=== PATIENT | male | born 2000 | race American Indian/Alaskan Native ===

== ENCOUNTER 2020-12-02 18:50 | Inpatient (IN) | payer SELFPAY ==
[2020-12-02] MEDS ORDERED: SODIUM CHLORIDE 0.9% 1000 ML 1,000 ML ONE ×2 (19:15→22:24)
--- NOTE | 2020-12-02 19:30 | Emergency Department Report ---
HPI - General Chief Complaint: Altered Mental Status Time Seen by Provider: 12/02/20 19:07 - HPI HPI: This is a 20-year-old male who presents to the emergency department through triage, brought in by family, for what appears to be an evaluation of altered mental status. Initially family said that he was having nausea with vomiting. However the patient is mostly unresponsive with his initial triage. It appears that Cameroonian is his redding language. Using the translation phone and a certified buck swamper, the patient says that he "feels fine but they thought something was wrong with me." He denies any headache, chest pain. He denies using any drugs or alcohol. However, at different points during his examination the patient's eyes will roll back into his head and he will start grunting and become less responsive. ED Review of Systems ROS: Stated complaint: VOMITTING Other details as noted in HPI Comment: Unobtainable due to pts medical conditions Physical Exam - Physical Exam Physical Exam: GENERAL: The patient is ill-appearing. HENT: Normocephalic. Atraumatic. Patient has moist mucous membranes. EYES: Patient's pupils are rolled back into his head. When they return to facing forward he does appear to have intact extraocular muscles and his pupils equal reactive to light bilaterally. NECK: Supple. Trachea is midline. CHEST/LUNGS: Clear to auscultation. There is no respiratory distress noted. HEART/CARDIOVASCULAR: Regular. There is moderate to severe tachycardia. There is no murmur. ABDOMEN: Abdomen is soft, nontender. Patient has normal bowel sounds. There is no abdominal distention. SKIN: Skin is warm and dry. NEURO: The patient is awake, alert, but confused. Cranial nerves II through XII grossly intact. No facial asymmetry. MUSCULOSKELETAL: There is no tenderness or deformity. There is no limitation range of motion. ED Medical Decision Making - Lab Data Result diagrams: 12/02/20 19:23 12/02/20 19:23 - EKG Data -: EKG Interpreted by Me EKG shows normal: sinus rhythm, axis, intervals, QRS complexes, ST-T waves Rate: tachycardia (138 bpm) - EKG Data When compared to previous EKG there are: previous EKG unavailable Interpretation: other (Sinus rhythm at 138 bpm, normal axis, normal intervals. No ST elevation [place]) - Radiology Data Radiology results: report reviewed, image reviewed interpreted by me: Chest x-ray does not show any acute process. There are no pleural effusions, obvious pneumonia and there is no pneumothorax. No widened mediastinum. CT head/brain wo con INDICATION / CLINICAL INFORMATION: 20 years Male; Altered mental status. TECHNIQUE: Routine CT head without contrast. All CT scans at this location are performed using CT dose reduction for ALARA by means of automated exposure control. COMPARISON: None. FINDINGS: BRAIN / INTRACRANIAL CONTENTS: No acute hemorrhage, mass effect, midline shift, hydrocephalus, or acute, large territorial infarct. No signs of significant atrophy or chronic infarct. No significant white matter abnormality seen. CRANIOCERVICAL JUNCTION: No significant abnormality. ORBITS: No significant abnormality of visualized orbits. SINUSES / MASTOIDS: Visualized paranasal sinuses and mastoid air cells are essentially clear. ADDITIONAL FINDINGS: None. IMPRESSION: 1. No focal mass, hemorrhage, hydrocephalus, or acute, large territorial infarct. - Medical Decision Making This patient presents to the emergency department with altered mental status. The patient has tachycardia with a heart rate of about 150. He is mostly nonverbal. Cameroonian appears to be his primary language but even with the translation line the patient only says no or yes. Multiple different times the patient can seen having his eyes rolled into the back of his head. When it normalizes he does appear to have equal pupils that are reactive to light and intact extraocular motion. Otherwise he does not appear to have any cranial nerve deficits. He is seen moving all of his extremities. CT of the head without contrast did not show any hemorrhage, large vessel occlusion, or any other acute process. EKG shows sinus tachycardia at about 135 bpm, but no morphology consistent with ST elevation myocardial infarction or any dysrhythmia. Chest x-ray does not show any pneumonia, pleural effusions, pneumothorax, widened mediastinum, or any other acute process. Patient's labs have been mostly unremarkable including CBC, CMP, normal thyroid function, normal ammonia, negative blood alcohol level and UDS. He has been given 2 L of IV fluid resuscitation and was given a dose of Ativan. There is some mild improvement in the tachycardia. Patient will be admitted to the hospital for further evaluation of his altered mental status and/or encephalopathy, and has been accepted for admission by the hospitalist, Dr. Cox. Critical Care Time: No Critical care attestation.: If time is entered above; I have spent that time in minutes in the direct care of this critically ill patient, excluding procedure time. ED Disposition Clinical Impression: Encephalopathy acute, Tachycardia Altered mental state Qualifiers: Altered mental status type: unspecified Qualified Code(s): R41.82 - Altered mental status, unspecified Disposition: 09 ADMITTED INPATIENT Is pt being admited?: Yes Condition: Stable Time of Disposition: 22:22
[2020-12-02 19:35] LABS: Basophils # (Auto) 0.1 K/mm3 (0.0-0.1); Basophils % (Auto) 0.4 % (0.0-1.8); Eosinophils % (Auto) 0.1 % (0.0-4.3); Hematocrit 44.9 % (35.5-45.6); Hemoglobin 15.2 gm/dl (11.8-15.2); Lymphocytes # (Auto) 1.3 K/mm3 (1.2-5.4); Lymphocytes % (Auto) 9.5 % (13.4-35.0); Mean Corpuscular HGB Conc 34 % (32-34); Mean Corpuscular Volume 86 fl (84-94); Monocytes # (Auto) 0.5 K/mm3 (0.0-0.8); Monocytes % (Auto) 3.8 % (0.0-7.3); Platelet Count 242 K/mm3 (140-440); Red Blood Count 5.24 M/mm3 (3.65-5.03); Red Cell Distribution Width 13.4 % (13.2-15.2)
--- NOTE | 2020-12-02 19:46 | XRay Report ---
CHEST 1 VIEW 12/02/2020 6:39 PM INDICATION / CLINICAL INFORMATION: Altered mental status. COMPARISON: None available. FINDINGS: SUPPORT DEVICES: None. HEART / MEDIASTINUM: No significant abnormality. LUNGS / PLEURA: No significant pulmonary or pleural abnormality. No pneumothorax. ADDITIONAL FINDINGS: No significant additional findings. IMPRESSION: 1. No acute findings. Signer Name: Cristóbal Montalvo MD Signed: 12/02/2020 7:42 PM Workstation Name: [id number]
[2020-12-02 20:00] LABS: Alanine Aminotransferase 26 units/L (7-56); Albumin 4.6 g/dL (3.9-5); BUN/Creatinine Ratio 10; Blood Urea Nitrogen 10 mg/dL (9-20); Calcium 9.7 mg/dL (8.4-10.2); Hemolysis Index 6
--- NOTE | 2020-12-02 20:15 | Cat Scan Report ---
CT head/brain wo con INDICATION / CLINICAL INFORMATION: 20 years Male; Altered mental status. TECHNIQUE: Routine CT head without contrast. All CT scans at this location are performed using CT dos e reduction for ALARA by means of automated exposure control. COMPARISON: None. FINDINGS: BRAIN / INTRACRANIAL CONTENTS: No acute hemorrhage, mass effect, midline shift, hydrocephalus, or acu te, large territorial infarct. No signs of significant atrophy or chronic infarct. No significant whi te matter abnormality seen. CRANIOCERVICAL JUNCTION: No significant abnormality. ORBITS: No significant abnormality of visualized orbits. SINUSES / MASTOIDS: Visualized paranasal sinuses and mastoid air cells are essentially clear. ADDITIONAL FINDINGS: None. IMPRESSION: 1. No focal mass, hemorrhage, hydrocephalus, or acute, large territorial infarct. Signer Name: Ted Olson MD, III Signed: 12/02/2020 8:11 PM Workstation Name: [id number]USMelanie
[2020-12-02 21:43] LABS: Bacteria,Urine 1+ /HPF (Negative); Bilirubin,Urine NEG (Negative); Blood,Urine NEG (Negative); Color,Urine Yellow (Yellow); Urobilinogen,Urine < 2.0 mg/dL (<2.0)
[2020-12-02 21:52] LABS: Benzodiazepines Screen,Urine Negative; Cannabinoid Screen,Urine Negative; Methadone Screen,Urine Negative; Opiate Screen,Urine Negative
[2020-12-02] MEDS ORDERED: LORazepam 2 MG/ML VIAL IV ONE (21:58)
[2020-12-02 22:04] LABS: Amphetamine Screen,Urine Negative; Cocaine Screen,Urine Negative
[2020-12-02] MEDS ORDERED: NALOXONE 0.4 MG/1 ML INJ IV PRN (23:17)
[2020-12-02] MEDS ORDERED: METOCLOPRAMIDE 10 MG/2 ML INJ IV PRN (23:17)
[2020-12-02] MEDS ORDERED: ALUM-MAG HYDROXIDE-SIMETHICONE 200-200-20MG/5ML ORAL LIQD 30 ML PO PRN (23:17)
[2020-12-02] MEDS ORDERED: ACETAMINOPHEN 325 MG TAB PO PRN (23:17)
[2020-12-02] MEDS ORDERED: SENNOSIDES 8.6 MG TAB PO PRN (23:17)
[2020-12-02] MEDS ORDERED: MAGNESIUM HYDROXIDE (MOM) ORAL LIQD UDC PO PRN (23:17)
[2020-12-02] MEDS ORDERED: ONDANSETRON 4 MG/2 ML INJ IV PRN (23:17)
[2020-12-02] MEDS ORDERED: oxyCODONE /ACETAMINOPHEN 5-325MG TAB PO PRN (23:17)
[2020-12-02] MEDS ORDERED: traMADol 50 MG TAB PO PRN (23:21)
[2020-12-02] MEDS ORDERED: traZODone 50 MG TAB PO PRN (23:21)
[2020-12-02] MEDS ORDERED: hydrALAZINE 20 MG/1 ML INJ IV PRN (23:21)
--- NOTE | 2020-12-02 23:30 | History and Physical Report ---
History of Present Illness Date of examination: 12/02/20 Date of admission: 12/02/20 22:22 Chief complaint: 12/02/20 History of present illness: This is a 20-year-old male seen in ED at baseline. Patient presents to the emergency department brought in by family with altered mental status. Per ED notes, family said that he was having nausea and vomiting. However the patient is mostly unresponsive with his initial triage. It appears that [place] Zealander is his k[place]isp[place] language. Using the translation phone and a certified well treatment offsider, the patient says that he "feels fine but they thought something was wrong with me." At the time of assessment patient is awake and oriented x1-2. Patient denies alcohol, tobacco use and illicit drug use. I reviewed radiology report CT of the head and chest x-ray showed no acute finding. MRI of the brain ordered and psych consulted for mental status evaluation. Past History Past Medical History: No medical history Past Surgical History: No surgical history Social history: no significant social history Family history: no significant family history (Patient came in with altered mental status, unable to get information from patient) Medications and Allergies Allergies Allergy/AdvReac Type Severity Reaction Status Date / Time Unable to Assess Allergy Verified 12/02/20 19:23 Active Meds: Active Medications Acetaminophen (Acetaminophen 325 Mg Tab) 650 mg PO Q4H PRN PRN Reason: Pain MILD(1-3)/Fever >100.5/STALEY Al Hydrox/Mg Hydrox/Simethicone (Alum-Mag Hydroxide-Simethicone [id number]/5ml Oral Liqd 30 Ml) 30 ml PO Q4H PRN PRN Reason: Indigestion Enoxaparin Sodium (Enoxaparin 40 Mg/0.4 Ml Inj) 40 mg SUB-Q QDAY ABHAY Famotidine (Famotidine 20 Mg/2 Ml Inj) 20 mg IV BID ABHAY Hydralazine HCl (Hydralazine 20 Mg/1 Ml Inj) 5 mg IV Q4HR PRN PRN Reason: Hypertension Sodium Chloride (Nacl 0.9% 1000 Ml) 1,000 mls @ 125 mls/hr IV DIRECT ABHAY Magnesium Hydroxide (Magnesium Hydroxide (Mom) Oral Liqd Udc) 30 ml PO Q4H PRN PRN Reason: Constipation Metoclopramide HCl (Metoclopramide 10 Mg/2 Ml Inj) 10 mg IV Q6H PRN PRN Reason: Nausea And Vomiting Naloxone HCl (Naloxone 0.4 Mg/1 Ml Inj) 0.1 mg IV Q2MIN PRN PRN Reason: Res Rate </= 8 or 02 SAT < 92% Ondansetron HCl (Ondansetron 4 Mg/2 Ml Inj) 4 mg IV Q8H PRN PRN Reason: Nausea And Vomiting Oxycodone/Acetaminophen (Oxycodone /Acetaminophen 5-325mg Tab) 1 tab PO Q6H PRN PRN Reason: Pain, Moderate (4-6) Senna (Sennosides 8.6 Mg Tab) 8.6 mg PO Q12HR PRN PRN Reason: Constipation Sodium Chloride (Sodium Chloride 0.9% 10 Ml Flush Syringe) 10 ml IV BID ABHAY Sodium Chloride (Sodium Chloride 0.9% 10 Ml Flush Syringe) 10 ml IV PRN PRN PRN Reason: LINE FLUSH Tramadol HCl (Tramadol 50 Mg Tab) 50 mg PO Q6H PRN PRN Reason: Pain, Moderate (4-6) Trazodone HCl (Trazodone 50 Mg Tab) 50 mg PO QHS PRN PRN Reason: Insomnia Review of Systems Ears, nose, mouth and throat: no epistaxis, no bleeding gums Cardiovascular: rapid/irregular heart beat, no chest pain Respiratory: no congestion, no wheezing Gastrointestinal: no melena Integumentary: no rash, no pruritis Neurological: change in mentation, sensory deficit Psychiatric: anxiety, confusion Hematologic/Lymphatic: no easy bruising, no easy bleeding Exam - Constitutional Vitals: Temp Pulse Resp BP Pulse Ox 98.5 F 139 H 16 105/62 100 12/02/20 22:26 12/02/20 22:45 12/02/20 22:45 12/02/20 22:45 12/02/20 22:45 General appearance: Present: mild distress, well-nourished - EENT Eyes: Present: PERRL ENT: hearing intact, clear oral mucosa - Neck Neck: Present: supple, normal ROM - Respiratory Respiratory effort: normal Respiratory: bilateral: CTA - Cardiovascular Heart Sounds: Present: S1 & S2. Absent: rub, click - Extremities Extremities: pulses symmetrical, No edema Peripheral Pulses: within normal limits - Abdominal General gastrointestinal: Present: soft, non-tender, non-distended, normal bowel sounds Male genitourinary: Present: normal - Integumentary Integumentary: Present: clear, warm, dry - Musculoskeletal Musculoskeletal: gait normal, strength equal bilaterally - Psychiatric Psychiatric: other (Patient confused with altered mental status) - Neurologic Neurologic: CNII-XII intact, moves all extremities - Allied Health Allied health notes reviewed: nursing Results - Labs CBC & Chem 7: 12/02/20 19:23 12/02/20 19:23 Labs: Abnormal lab results 12/02/20 12/02/20 12/02/20 Range/Units 19:23 19:23 Unknown WBC 13.7 H (4.5-11.0) K/mm3 RBC 5.24 H (3.65-5.03) M/mm3 Lymph % (Auto) 9.5 L (13.4-35.0) % Seg Neutrophils % 86.2 H (40.0-70.0) % Seg Neutrophils # 11.8 H (1.8-7.7) K/mm3 Glucose 149 H (75-100) mg/dL Urine pH 8.0 H (5.0-7.0) Assessment and Plan - Patient Problems (1) Encephalopathy acute Current Visit: Yes Status: Acute Plan to address problem: Questionable cause CT of the head negative for acute process Chest x-rayno acute finding Consults psych for mental status evaluation and treatment recommendation (2) Tachycardia with heart rate 141-160 beats per minute Current Visit: Yes Plan to address problem: Patient came in with altered mental status and sinus tachycardia Chest x-ray is done no acute finding Will continue IV hydration (3) Leukocytosis Current Visit: Yes Status: Acute Plan to address problem: Unknown causelikely reactive/infection Patient has no evidence of sepsis Monitor WBCblood culture x2 (4) DVT prophylaxis Current Visit: Yes Status: Acute Plan to address problem: Subcutaneous level
[2020-12-03 05:28] LABS: Basophils # (Auto) 0.1 K/mm3 (0.0-0.1); Basophils % (Auto) 0.8 % (0.0-1.8); Eosinophils # (Auto) 0.1 K/mm3 (0.0-0.4); Eosinophils % (Auto) 1.4 % (0.0-4.3); Hematocrit 43.2 % (35.5-45.6); Hemoglobin 14.5 gm/dl (11.8-15.2); Lymphocytes # (Auto) 2.5 K/mm3 (1.2-5.4); Lymphocytes % (Auto) 23.4 % (13.4-35.0); Mean Corpuscular HGB Conc 34 % (32-34); Mean Corpuscular Volume 86 fl (84-94); Monocytes # (Auto) 0.7 K/mm3 (0.0-0.8); Monocytes % (Auto) 6.6 % (0.0-7.3); Platelet Count 228 K/mm3 (140-440); Red Blood Count 4.99 M/mm3 (3.65-5.03); Red Cell Distribution Width 13.6 % (13.2-15.2)
[2020-12-03 05:53] LABS: Alanine Aminotransferase 22 units/L (7-56); Albumin 4.1 g/dL (3.9-5); BUN/Creatinine Ratio 10; Blood Urea Nitrogen 8 mg/dL (9-20); Calcium 9.2 mg/dL (8.4-10.2); Hemolysis Index 11
--- NOTE | 2020-12-03 10:17 | Electrocardiograph Report ---
[facility] Test Date: 2020-12-02 Test Time: 18:57:05 Pat Name: LUZMA CHANCE Department: Room: [place] [address] Gender: M Financial Compliance Manager: IVAN : 2000 Requested By: GENA WATKINS Order Number: [id number] Reading MD: Aris Meneses Measurements Intervals [place] Rate: 138 P: 69 MT: 122 QRS: 93 QRSD: 88 T: 14 QT: 298 QTc: 451 Interpretive Statements Sinus tachycardia No previous ECG available for comparison Electronically Signed On 12-03-2020 10:16:30 EDT by Aris Meneses
--- NOTE | 2020-12-03 11:02 | Magnetic Resonance Report ---
. MRI BRAIN WITHOUT CONTRAST INDICATION / CLINICAL INFORMATION: Altered mental status. TECHNIQUE: Multiplanar, multisequence MR images of the brain were obtained. COMPARISON: None available. FINDINGS: BRAIN / INTRACRANIAL CONTENTS: Ventricles and cortical sulci are normal in size and configuration. Th ere is no mass effect. No evidence of intracranial hemorrhage or extra-axial fluid collection is seen . No significant areas of abnormal brain parenchymal signal intensity are identified. There is no ind ication of remote cortical infarction. Diffusion weighted scans are negative. There is no indication of acute ischemic injury. The brainstem and cerebellum have an unremarkable appearance. MIDLINE STRUCTURES:No abnormalities are seen to involve the pituitary gland. Pineal region has an unr emarkable appearance. CRANIOCERVICAL JUNCTION: No abnormalities are identified at the craniocervical junction. VASCULAR FLOW-VOIDS: Normal flow-voids are present within the major intracranial vessels. ORBITS: The orbits have an unremarkable appearance. SINUSES / MASTOIDS: There is no indication of inflammatory disease in the paranasal sinuses or mastoi d air cells. IMPRESSION: 1. Normal MRI brain. Signer Name: Den Estrada MD Signed: 12/03/2020 10:57 AM Workstation Name: [id number]
[2020-12-03] MEDS: FAMOTIDINE 20 MG/2 ML INJ IV SCH (11:37)
[2020-12-03] MEDS: ENOXAPARIN 40 MG/0.4 ML INJ SUB-Q SCH (11:37)
--- NOTE | 2020-12-03 14:28 | Progress Note ---
Assessment and Plan Assessment and plan: (1) Encephalopathy acute Current Visit: Yes Status: Acute Plan to address problem: Questionable cause CT of the head negative for acute process Chest x-rayno acute finding Consults psych for mental status evaluation and treatment recommendation (2) Tachycardia with heart rate 141-160 beats per minute Current Visit: Yes Plan to address problem: Patient came in with altered mental status and sinus tachycardia Chest x-ray is done no acute finding Will continue IV hydration (3) Leukocytosis Current Visit: Yes Status: Acute Plan to address problem: Unknown causelikely reactive/infection Patient has no evidence of sepsis Monitor WBCblood culture x2 (4) DVT prophylaxis Current Visit: Yes Status: Acute Plan to address problem: Subcutaneous level 12/03/20 Patient with altered mental status, tachycardia. MRI Brain negative. Still has tachycardia, on iv fluids Neurology to evaluate History Interval history: Altered mental status Hospitalist Physical - Physical exam Narrative exam: Gen:Not in acute distress, lying in bed HEENT:Normocephalic, atraumatic Neck:supple, no JVD Lungs: clear to auscultation ,no wheeze Heart:S1 and S2 reg, no murmurs, rubs or gallop Abd:Soft, non tender, non distended, normal bowel sounds Ext:No edema. no clubbing, no cyanosis Neuro:Awake, alert, moves all ext - Constitutional Vitals: Temp Pulse Resp BP Pulse Ox 98.5 F 113 H 15 114/67 100 12/02/20 22:26 12/03/20 11:01 12/03/20 11:01 12/03/20 11:01 12/03/20 11:01 General appearance: Present: well-nourished Results - Labs CBC & Chem 7: 12/03/20 04:50 12/03/20 04:50 Labs: Laboratory Last Values WBC 10.5 K/mm3 (4.5-11.0) 12/03/20 04:50 RBC 4.99 M/mm3 (3.65-5.03) 12/03/20 04:50 Hgb 14.5 gm/dl (11.8-15.2) 12/03/20 04:50 Hct 43.2 % (35.5-45.6) 12/03/20 04:50 MCV 86 fl (84-94) 12/03/20 04:50 MCH 29 pg (28-32) 12/03/20 04:50 MCHC 34 % (32-34) 12/03/20 04:50 RDW 13.6 % (13.2-15.2) 12/03/20 04:50 Plt Count 228 K/mm3 (140-440) 12/03/20 04:50 Lymph % (Auto) 23.4 % (13.4-35.0) 12/03/20 04:50 [place] % (Auto) 6.6 % (0.0-7.3) 12/03/20 04:50 Eos % (Auto) 1.4 % (0.0-4.3) 12/03/20 04:50 Baso % (Auto) 0.8 % (0.0-1.8) 12/03/20 04:50 Lymph # (Auto) 2.5 K/mm3 (1.2-5.4) 12/03/20 04:50 [place] # (Auto) 0.7 K/mm3 (0.0-0.8) 12/03/20 04:50 Eos # (Auto) 0.1 K/mm3 (0.0-0.4) 12/03/20 04:50 Baso # (Auto) 0.1 K/mm3 (0.0-0.1) 12/03/20 04:50 Seg Neutrophils % 67.8 % (40.0-70.0) 12/03/20 04:50 Seg Neutrophils # 7.1 K/mm3 (1.8-7.7) 12/03/20 04:50 Sodium 143 mmol/L (137-145) 12/03/20 04:50 Potassium 3.8 mmol/L (3.6-5.0) 12/03/20 04:50 Chloride 107.6 mmol/L (98-107) H 12/03/20 04:50 Carbon Dioxide 26 mmol/L (22-30) 12/03/20 04:50 Anion Gap 13 mmol/L 12/03/20 04:50 BUN 8 mg/dL (9-20) L 12/03/20 04:50 Creatinine 0.8 mg/dL (0.8-1.3) 12/03/20 04:50 Estimated GFR > 60 ml/min 12/03/20 04:50 BUN/Creatinine Ratio 10 % 12/03/20 04:50 Glucose 108 mg/dL (75-100) H 12/03/20 04:50 Calcium 9.2 mg/dL (8.4-10.2) 12/03/20 04:50 Total Bilirubin 0.30 mg/dL (0.1-1.2) 12/03/20 04:50 AST 20 units/L (5-40) 12/03/20 04:50 ALT 22 units/L (7-56) 12/03/20 04:50 Alkaline Phosphatase 75 units/L (35-129) 12/03/20 04:50 Ammonia 39.0 umol/L (25-60) 12/02/20 19:23 Total Creatine Kinase 116 units/L (55-170) 12/02/20 19:23 Total Protein 6.7 g/dL (6.3-8.2) 12/03/20 04:50 Albumin 4.1 g/dL (3.9-5) 12/03/20 04:50 Albumin/Globulin Ratio 1.6 % 12/03/20 04:50 TSH 0.676 mlU/mL (0.270-4.200) 12/02/20 19:23 Urine Color Yellow (Yellow) 12/02/20 Unknown Urine Turbidity Cloudy (Clear) 12/02/20 Unknown Urine pH 8.0 (5.0-7.0) H 12/02/20 Unknown Ur Specific [place] 1.023 (1.003-1.030) 12/02/20 Unknown Urine Protein 100 mg/dl mg/dL (Negative) 12/02/20 Unknown Urine Glucose (UA) Neg mg/dL (Negative) 12/02/20 Unknown Urine Ketones Tr mg/dL (Negative) 12/02/20 Unknown Urine Blood Neg (Negative) 12/02/20 Unknown Urine Nitrite Neg (Negative) 12/02/20 Unknown Urine Bilirubin Neg (Negative) 12/02/20 Unknown Urine Urobilinogen < 2.0 mg/dL (<2.0) 12/02/20 Unknown Ur Leukocyte Esterase Neg (Negative) 12/02/20 Unknown Urine WBC (Auto) 2.0 /HPF (0.0-6.0) 12/02/20 Unknown Urine RBC (Auto) 1.0 /HPF (0.0-6.0) 12/02/20 Unknown Urine Bacteria (Auto) 1+ /HPF (Negative) 12/02/20 Unknown Urine Yeast (Budding) 2+ /HPF 12/02/20 Unknown Urine Opiates Screen Negative 12/02/20 Unknown Urine Methadone Screen Negative 12/02/20 Unknown Ur Barbiturates Screen Negative 12/02/20 Unknown Ur Phencyclidine Scrn Negative 12/02/20 Unknown Ur Amphetamines Screen Negative 12/02/20 Unknown U Benzodiazepines Scrn Negative 12/02/20 Unknown Urine Cocaine Screen Negative 12/02/20 Unknown U Marijuana (THC) Screen Negative 12/02/20 Unknown Drugs of Abuse Note Disclamer 12/02/20 Unknown Plasma/Serum Alcohol < 0.01 % (0-0.07) 12/02/20 19:23 Microbiology: Microbiology 12/03/20 05:15 Peripheral/Venous Blood Culture - Preliminary Culture in Progress 12/03/20 05:45 Peripheral/Venous Blood Culture - Preliminary Culture in Progress Active Medications - Current Medications Current Medications: Generic Name Dose Route Start Last Admin Trade Name Freq PRN Reason Stop Dose Admin Acetaminophen 650 mg 12/02/20 23:17 Acetaminophen 325 Mg Tab PO Q4H PRN Pain MILD(1-3)/Fever >100.5/STALEY Al Hydrox/Mg Hydrox/Simethicone 30 ml 12/02/20 23:17 Alum-Mag Hydroxide-Simethicone [phone]/5ml Oral Liqd 30 Ml PO Q4H PRN Indigestion Enoxaparin Sodium 40 mg 12/03/20 10:00 12/03/20 11:37 Enoxaparin 40 Mg/0.4 Ml Inj SUB-Q 40 mg QDAY ABHAY Administration Famotidine 20 mg 12/03/20 10:00 12/03/20 11:37 Famotidine 20 Mg/2 Ml Inj IV 20 mg BID ABHAY Administration Hydralazine HCl 5 mg 12/02/20 23:21 Hydralazine 20 Mg/1 Ml Inj IV Q4HR PRN Hypertension Sodium Chloride 1,000 mls @ 125 mls/hr 12/02/20 23:30 Nacl 0.9% 1000 Ml IV DIRECT ABHAY Magnesium Hydroxide 30 ml 12/02/20 23:17 Magnesium Hydroxide (Mom) Oral Liqd Udc PO Q4H PRN Constipation Metoclopramide HCl 10 mg 12/02/20 23:17 Metoclopramide 10 Mg/2 Ml Inj IV Q6H PRN Nausea And Vomiting Naloxone HCl 0.1 mg 12/02/20 23:17 Naloxone 0.4 Mg/1 Ml Inj IV Q2MIN PRN Res Rate </= 8 or 02 SAT < 92% Ondansetron HCl 4 mg 12/02/20 23:17 Ondansetron 4 Mg/2 Ml Inj IV Q8H PRN Nausea And Vomiting Oxycodone/Acetaminophen 1 tab 12/02/20 23:17 Oxycodone /Acetaminophen 5-325mg Tab PO Q6H PRN Pain, Moderate (4-6) Senna 8.6 mg 12/02/20 23:17 Sennosides 8.6 Mg Tab PO Q12HR PRN Constipation Sodium Chloride 10 ml 12/02/20 23:45 12/03/20 11:37 Sodium Chloride 0.9% 10 Ml Flush Syringe IV 10 ml BID ABHAY Administration Sodium Chloride 10 ml 12/02/20 23:17 Sodium Chloride 0.9% 10 Ml Flush Syringe IV PRN PRN LINE FLUSH Tramadol HCl 50 mg 12/02/20 23:21 Tramadol 50 Mg Tab PO Q6H PRN Pain, Moderate (4-6) Trazodone HCl 50 mg 12/02/20 23:21 Trazodone 50 Mg Tab PO QHS PRN Insomnia
--- NOTE | 2020-12-03 16:47 | Consultation ---
History of Present Illness Consult date: 12/03/20 Reason for Consult: Altered Mental Status Chief complaint: Altered Mental Status History of present illness: 20 yo male with acute encephalopathy. 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 Past History Past Medical History: No medical history Past Surgical History: No surgical history Social history: no significant social history Family history: no significant family history (Patient came in with altered mental status, unable to get information from patient) Medications and Allergies Allergies Allergy/AdvReac Type Severity Reaction Status Date / Time Unable to Assess Allergy Verified 12/02/20 19:23 Active Meds: Active Medications Acetaminophen (Acetaminophen 325 Mg Tab) 650 mg PO Q4H PRN PRN Reason: Pain MILD(1-3)/Fever >100.5/STALEY Al Hydrox/Mg Hydrox/Simethicone (Alum-Mag Hydroxide-Simethicone [phone]/5ml Oral Liqd 30 Ml) 30 ml PO Q4H PRN PRN Reason: Indigestion Enoxaparin Sodium (Enoxaparin 40 Mg/0.4 Ml Inj) 40 mg SUB-Q QDAY [facility] Last Admin: 12/03/20 11:37 Dose: 40 mg Documented by: Famotidine (Famotidine 20 Mg/2 Ml Inj) 20 mg IV BID [facility] Last Admin: 12/03/20 11:37 Dose: 20 mg Documented by: Hydralazine HCl (Hydralazine 20 Mg/1 Ml Inj) 5 mg IV Q4HR PRN PRN Reason: Hypertension Sodium Chloride (Nacl 0.9% 1000 Ml) 1,000 mls @ 125 mls/hr IV DIRECT [facility] Magnesium Hydroxide (Magnesium Hydroxide (Mom) Oral Liqd Udc) 30 ml PO Q4H PRN PRN Reason: Constipation Metoclopramide HCl (Metoclopramide 10 Mg/2 Ml Inj) 10 mg IV Q6H PRN PRN Reason: Nausea And Vomiting Naloxone HCl (Naloxone 0.4 Mg/1 Ml Inj) 0.1 mg IV Q2MIN PRN PRN Reason: Res Rate </= 8 or 02 SAT < 92% Ondansetron HCl (Ondansetron 4 Mg/2 Ml Inj) 4 mg IV Q8H PRN PRN Reason: Nausea And Vomiting Oxycodone/Acetaminophen (Oxycodone /Acetaminophen 5-325mg Tab) 1 tab PO Q6H PRN PRN Reason: Pain, Moderate (4-6) Senna (Sennosides 8.6 Mg Tab) 8.6 mg PO Q12HR PRN PRN Reason: Constipation Sodium Chloride (Sodium Chloride 0.9% 10 Ml Flush Syringe) 10 ml IV BID [facility] Last Admin: 12/03/20 11:37 Dose: 10 ml Documented by: Sodium Chloride (Sodium Chloride 0.9% 10 Ml Flush Syringe) 10 ml IV PRN PRN PRN Reason: LINE FLUSH Tramadol HCl (Tramadol 50 Mg Tab) 50 mg PO Q6H PRN PRN Reason: Pain, Moderate (4-6) Trazodone HCl (Trazodone 50 Mg Tab) 50 mg PO QHS PRN PRN Reason: Insomnia Physical Examination - Vital Signs Vital Signs: Vital Signs Pulse Resp Pulse Ox 120 H 15 100 12/02/20 19:46 12/02/20 19:46 12/02/20 19:46 - Physical Exam Narrative exam: Patient is not able to cooperate with exam due to language barrier. Results - Laboratory Findings CBC and BMP: 12/03/20 04:50 12/03/20 04:50 Abnormal Lab Findings: Abnormal Labs 12/02/20 12/02/20 12/02/20 19:23 19:23 Unknown WBC 13.7 H RBC 5.24 H Lymph % (Auto) 9.5 L Seg Neutrophils % 86.2 H Seg Neutrophils # 11.8 H Chloride BUN Glucose 149 H Urine pH 8.0 H 12/03/20 04:50 WBC RBC Lymph % (Auto) Seg Neutrophils % Seg Neutrophils # Chloride 107.6 H BUN 8 L Glucose 108 H Urine pH Assessment and Plan 20 yo male with noted acute encephalopathy. 1. Seizure - recommend EEG; MRI Brain w/ wo contrast. 2. Toxic / Metabolic Encephalopathy - workup per primary team. 3. ADEM - confirm no underlying covid-19; awaiting MRI Brain w/ wo contrast. 4. Encephalitis - consider CSF evaluation if MRI Brain and metaolic/toxic workup is unremarkable. Randy Tadeo MD Neurology
[2020-12-04] MEDS: FAMOTIDINE 20 MG/2 ML INJ IV SCH ×3 (01:52→21:20)
[2020-12-04 05:06] LABS: Hematocrit 45.5 % (35.5-45.6); Hemoglobin 15.5 gm/dl (11.8-15.2); Mean Corpuscular HGB Conc 34 % (32-34); Mean Corpuscular Volume 87 fl (84-94); Platelet Count 244 K/mm3 (140-440); Red Blood Count 5.21 M/mm3 (3.65-5.03); Red Cell Distribution Width 13.5 % (13.2-15.2)
[2020-12-04 05:14] LABS: BUN/Creatinine Ratio 12; Blood Urea Nitrogen 12 mg/dL (9-20); Calcium 9.4 mg/dL (8.4-10.2); Hemolysis Index 6
--- NOTE | 2020-12-04 08:59 | Event Note ---
Date: 12/04/20 Consulted ID for poss Encephalitis,as per Neuro. I discussed with Dr. Hernandez. She recommends Vancomycin, Rocephin, Acyclovir and obtain lumbar puncture for CSF analysis.
[2020-12-04] MEDS ORDERED: VANCOMYCIN PHARMACY TO DOSE IV SCH (09:00)
[2020-12-04] MEDS ORDERED: VANCOMYCIN 1,750 MG in SODIUM CHLORIDE 0.9% 500 ML 500 ML IV ONE (10:00)
--- NOTE | 2020-12-04 10:06 | Progress Note ---
Assessment and Plan Assessment and plan: (1) Encephalopathy acute Current Visit: Yes Status: Acute Plan to address problem: Questionable cause CT of the head negative for acute process Chest x-rayno acute finding Consults psych for mental status evaluation and treatment recommendation (2) Tachycardia with heart rate 141-160 beats per minute Current Visit: Yes Plan to address problem: Patient came in with altered mental status and sinus tachycardia Chest x-ray is done no acute finding Will continue IV hydration (3) Leukocytosis Current Visit: Yes Status: Acute Plan to address problem: Unknown causelikely reactive/infection Patient has no evidence of sepsis Monitor WBCblood culture x2 (4) DVT prophylaxis Current Visit: Yes Status: Acute Plan to address problem: Subcutaneous level 12/03/20 Patient with altered mental status, tachycardia. MRI Brain negative. Still has tachycardia, on iv fluids Neurology to evaluate 12/04/20 patient with altered mental status, tachycardia. MRI Brain without contrast is negative. He was evaluated by Neurologist and he noted poss seizures, poss encephalitis. I consulted GENE Mansfield for possible encephalitis and discussed case with her. She recommends starting Ceftriaxone, Vancomycin and Acyclovir and obtain Lumbar puncture for CSF analysis. History Interval history: Altered mental status Hospitalist Physical - Physical exam Narrative exam: Gen:Not in acute distress, lying in bed HEENT:Normocephalic, atraumatic Neck:supple, no JVD Lungs: clear to auscultation ,no wheeze Heart:S1 and S2 reg, no murmurs, rubs or gallop Abd:Soft, non tender, non distended, normal bowel sounds Ext:No edema. no clubbing, no cyanosis Neuro:Awake, alert, currently oriented in person,place, time, moves all ext - Constitutional Vitals: Temp Pulse Resp BP Pulse Ox 97.5 F L 112 H 17 113/71 98 12/04/20 04:15 12/04/20 04:15 12/04/20 04:15 12/04/20 04:15 12/04/20 04:15 General appearance: Present: well-nourished Results - Labs CBC & Chem 7: 12/04/20 03:31 12/04/20 03:31 Labs: Laboratory Last Values WBC 10.3 K/mm3 (4.5-11.0) 12/04/20 03:31 RBC 5.21 M/mm3 (3.65-5.03) H 12/04/20 03:31 Hgb 15.5 gm/dl (11.8-15.2) H 12/04/20 03:31 Hct 45.5 % (35.5-45.6) 12/04/20 03:31 MCV 87 fl (84-94) 12/04/20 03:31 MCH 30 pg (28-32) 12/04/20 03:31 MCHC 34 % (32-34) 12/04/20 03:31 RDW 13.5 % (13.2-15.2) 12/04/20 03:31 Plt Count 244 K/mm3 (140-440) 12/04/20 03:31 Lymph % (Auto) 23.4 % (13.4-35.0) 12/03/20 04:50 [place] % (Auto) 6.6 % (0.0-7.3) 12/03/20 04:50 Eos % (Auto) 1.4 % (0.0-4.3) 12/03/20 04:50 Baso % (Auto) 0.8 % (0.0-1.8) 12/03/20 04:50 Lymph # (Auto) 2.5 K/mm3 (1.2-5.4) 12/03/20 04:50 [place] # (Auto) 0.7 K/mm3 (0.0-0.8) 12/03/20 04:50 Eos # (Auto) 0.1 K/mm3 (0.0-0.4) 12/03/20 04:50 Baso # (Auto) 0.1 K/mm3 (0.0-0.1) 12/03/20 04:50 Seg Neutrophils % 67.8 % (40.0-70.0) 12/03/20 04:50 Seg Neutrophils # 7.1 K/mm3 (1.8-7.7) 12/03/20 04:50 Sodium 142 mmol/L (137-145) 12/04/20 03:31 Potassium 3.8 mmol/L (3.6-5.0) 12/04/20 03:31 Chloride 102.2 mmol/L (98-107) 12/04/20 03:31 Carbon Dioxide 26 mmol/L (22-30) 12/04/20 03:31 Anion Gap 18 mmol/L 12/04/20 03:31 BUN 12 mg/dL (9-20) 12/04/20 03:31 Creatinine 1.0 mg/dL (0.8-1.3) 12/04/20 03:31 Estimated GFR > 60 ml/min 12/04/20 03:31 BUN/Creatinine Ratio 12 % 12/04/20 03:31 Glucose 96 mg/dL (75-100) 12/04/20 03:31 Calcium 9.4 mg/dL (8.4-10.2) 12/04/20 03:31 Total Bilirubin 0.30 mg/dL (0.1-1.2) 12/03/20 04:50 AST 20 units/L (5-40) 12/03/20 04:50 ALT 22 units/L (7-56) 12/03/20 04:50 Alkaline Phosphatase 75 units/L (35-129) 12/03/20 04:50 Ammonia 39.0 umol/L (25-60) 12/02/20 19:23 Total Creatine Kinase 116 units/L (55-170) 12/02/20 19:23 Total Protein 6.7 g/dL (6.3-8.2) 12/03/20 04:50 Albumin 4.1 g/dL (3.9-5) 12/03/20 04:50 Albumin/Globulin Ratio 1.6 % 12/03/20 04:50 TSH 0.676 mlU/mL (0.270-4.200) 12/02/20 19:23 Urine Color Yellow (Yellow) 12/02/20 Unknown Urine Turbidity Cloudy (Clear) 12/02/20 Unknown Urine pH 8.0 (5.0-7.0) H 12/02/20 Unknown Ur Specific [place] 1.023 (1.003-1.030) 12/02/20 Unknown Urine Protein 100 mg/dl mg/dL (Negative) 12/02/20 Unknown Urine Glucose (UA) Neg mg/dL (Negative) 12/02/20 Unknown Urine Ketones Tr mg/dL (Negative) 12/02/20 Unknown Urine Blood Neg (Negative) 12/02/20 Unknown Urine Nitrite Neg (Negative) 12/02/20 Unknown Urine Bilirubin Neg (Negative) 12/02/20 Unknown Urine Urobilinogen < 2.0 mg/dL (<2.0) 12/02/20 Unknown Ur Leukocyte Esterase Neg (Negative) 12/02/20 Unknown Urine WBC (Auto) 2.0 /HPF (0.0-6.0) 12/02/20 Unknown Urine RBC (Auto) 1.0 /HPF (0.0-6.0) 12/02/20 Unknown Urine Bacteria (Auto) 1+ /HPF (Negative) 12/02/20 Unknown Urine Yeast (Budding) 2+ /HPF 12/02/20 Unknown Urine Opiates Screen Negative 12/02/20 Unknown Urine Methadone Screen Negative 12/02/20 Unknown Ur Barbiturates Screen Negative 12/02/20 Unknown Ur Phencyclidine Scrn Negative 12/02/20 Unknown Ur Amphetamines Screen Negative 12/02/20 Unknown U Benzodiazepines Scrn Negative 12/02/20 Unknown Urine Cocaine Screen Negative 12/02/20 Unknown U Marijuana (THC) Screen Negative 12/02/20 Unknown Drugs of Abuse Note Disclamer 12/02/20 Unknown Plasma/Serum Alcohol < 0.01 % (0-0.07) 12/02/20 19:23 Microbiology: Microbiology 12/03/20 05:15 Peripheral/Venous Blood Culture - Preliminary NO GROWTH AFTER 24 HOURS 12/03/20 05:45 Peripheral/Venous Blood Culture - Preliminary NO GROWTH AFTER 24 HOURS Active Medications - Current Medications Current Medications: Generic Name Dose Route Start Last Admin Trade Name Freq PRN Reason Stop Dose Admin Acetaminophen 650 mg 12/02/20 23:17 Acetaminophen 325 Mg Tab PO Q4H PRN Pain MILD(1-3)/Fever >100.5/STALEY Al Hydrox/Mg Hydrox/Simethicone 30 ml 12/02/20 23:17 Alum-Mag Hydroxide-Simethicone [phone]/5ml Oral Liqd 30 Ml PO Q4H PRN Indigestion Enoxaparin Sodium 40 mg 12/03/20 10:00 12/03/20 11:37 Enoxaparin 40 Mg/0.4 Ml Inj SUB-Q 40 mg QDAY [facility] Administration Famotidine 20 mg 12/03/20 10:00 12/04/20 01:52 Famotidine 20 Mg/2 Ml Inj IV Not Given BID [facility] Hydralazine HCl 5 mg 12/02/20 23:21 Hydralazine 20 Mg/1 Ml Inj IV Q4HR PRN Hypertension Sodium Chloride 1,000 mls @ 125 mls/hr 12/02/20 23:30 Nacl 0.9% 1000 Ml IV DIRECT [facility] Ceftriaxone Sodium 2 gm in 100 mls @ 200 mls/hr 12/04/20 10:00 Rocephin/Ns 2 Gm/100 Ml IV Q12HR [facility] Protocol Acyclovir 800 mg/ Sodium 116 mls @ 100 mls/hr 12/04/20 10:00 Chloride IV Q8H [facility] Protocol Vancomycin HCl 1,750 mg/ 535 mls @ 356.667 mls/hr 12/04/20 10:00 Sodium Chloride IV 12/04/20 11:29 ONCE ONE Magnesium Hydroxide 30 ml 12/02/20 23:17 Magnesium Hydroxide (Mom) Oral Liqd Udc PO Q4H PRN Constipation Metoclopramide HCl 10 mg 12/02/20 23:17 Metoclopramide 10 Mg/2 Ml Inj IV Q6H PRN Nausea And Vomiting Naloxone HCl 0.1 mg 12/02/20 23:17 Naloxone 0.4 Mg/1 Ml Inj IV Q2MIN PRN Res Rate </= 8 or 02 SAT < 92% Ondansetron HCl 4 mg 12/02/20 23:17 Ondansetron 4 Mg/2 Ml Inj IV Q8H PRN Nausea And Vomiting Oxycodone/Acetaminophen 1 tab 12/02/20 23:17 Oxycodone /Acetaminophen 5-325mg Tab PO Q6H PRN Pain, Moderate (4-6) Senna 8.6 mg 12/02/20 23:17 Sennosides 8.6 Mg Tab PO Q12HR PRN Constipation Sodium Chloride 10 ml 12/02/20 23:45 12/04/20 01:52 Sodium Chloride 0.9% 10 Ml Flush Syringe IV Not Given BID ABHAY Sodium Chloride 10 ml 12/02/20 23:17 Sodium Chloride 0.9% 10 Ml Flush Syringe IV PRN PRN LINE FLUSH Tramadol HCl 50 mg 12/02/20 23:21 Tramadol 50 Mg Tab PO Q6H PRN Pain, Moderate (4-6) Trazodone HCl 50 mg 12/02/20 23:21 12/03/20 23:02 Trazodone 50 Mg Tab PO 50 mg QHS PRN Administration Insomnia
[2020-12-04] MEDS: cefTRIAXone/NS 2 GM/100 ML 2 GM/100 ML BAG IV SCH ×2 (10:37→21:22)
[2020-12-04] MEDS: ENOXAPARIN 40 MG/0.4 ML INJ SUB-Q SCH ×2 (10:39→13:54)
[2020-12-04] MEDS: SODIUM CHLORIDE 0.9% 1000 ML 1,000 ML IV SCH ×2 (10:40→23:43)
--- NOTE | 2020-12-04 12:30 | Consultation ---
History of Present Illness - Reason for Consult Consult date: 12/04/20 Reason for consult: AMS - History of Present Psychiatric Illness Per ER Note: This is a 20-year-old male who presents to the emergency department through triage, brought in by family, for what appears to be an evaluation of altered mental status. Initially family said that he was having nausea with vomiting. However the patient is mostly unresponsive with his initial triage. It appears that [place]ian is his [place] and [place] tribes language. Using the translation phone and a certified hospital attendant, the patient says that he "feels fine but they thought something was wrong with me." He denies any headache, chest pain. He denies using any drugs or alcohol. However, at different points during his examination the patient's eyes will roll back into his head and he will start grunting and become less responsive. Lupillo Toth is a 20y/o male patient whom I evaluated today. The patient is [place]ian speaking. The language line was utilized. The patient is a/o x 3. He is calm and cooperative. The patient state he was brought to the hospital because he wasn't feeling well. He denies any past psychiatric history. He also denies being on any psychiatric medications. The patient denies SI/HI or ever feeling this way in the past. He denies hallucinations of any kind. The patient says "no, I came to the hospital because I was not feeling well." The patient denies any illicit drug use, alcohol or nicotine. When asking the patient was he feeling okay mentally, he says yes. He denied feeling depressed or anxious. PAST PSYCHIATRIC HISTORY: Diagnoses: Denies Suicide attempts or Self-harm behavior: Denies Prior psychiatric hospitalizations: Denies Substance Abuse history: Denies Previous psychiatric medications tried: Denies Outpatient treatment: Denies PAST MEDICAL HISTORY: None reported or document Family Psychiatric History: None reported or documented SOCIAL HISTORY Marital Status: Single Living Arrangements: with family Employment Status: unemployed Access to guns/weapons: Denies Education: high school History of Abuse: None reported Legal History: None reported REVIEW OF SYSTEMS Constitutional: Negative for weight loss ENT: Negative for stridor Respiratory: Negative for cough or hemoptysis All other systems reviewed and are negative MENTAL STATUS EXAMINATION General Appearance and Behavior: Age appropriate, good hygiene, wearing appropriate clothes, polite Cooperation: Cooperative Psychomotor Behavior: Psychomotor normal Mood: okay Affect and affective range: congruent with stated mood Thought Process: Goal directed Thought Content: None Speech: Normal volume, Regular rate and rhythm, Suicidal Ideation: Denies Homicidal Ideation: Denies Hallucinations: Denies Delusions: None elicited Impulse Control: Limited Insight and Judgment: Limited Memory: Limited Attention: Attentive Orientation: alert and oriented Assessment and Plan (1) Mental Health Evaluation Treatment Plan No meds at this time Sitter: per primary Medical: per primary Disposition: Do not recommend acute psychiatric inpatient treatment. Will sign off. Thanks Case staffed with Dr. Carias Medications and Allergies Allergies Allergy/AdvReac Type Severity Reaction Status Date / Time Unable to Assess Allergy Verified 12/02/20 19:23 Active Meds: Active Medications Acetaminophen (Acetaminophen 325 Mg Tab) 650 mg PO Q4H PRN PRN Reason: Pain MILD(1-3)/Fever >100.5/STALEY Al Hydrox/Mg Hydrox/Simethicone (Alum-Mag Hydroxide-Simethicone [phone]/5ml Oral Liqd 30 Ml) 30 ml PO Q4H PRN PRN Reason: Indigestion Enoxaparin Sodium (Enoxaparin 40 Mg/0.4 Ml Inj) 40 mg SUB-Q QDAY [facility] Last Admin: 12/04/20 10:39 Dose: Not Given Documented by: Famotidine (Famotidine 20 Mg/2 Ml Inj) 20 mg IV BID [facility] Last Admin: 12/04/20 10:37 Dose: 20 mg Documented by: Hydralazine HCl (Hydralazine 20 Mg/1 Ml Inj) 5 mg IV Q4HR PRN PRN Reason: Hypertension Sodium Chloride (Nacl 0.9% 1000 Ml) 1,000 mls @ 125 mls/hr IV DIRECT [facility] Last Admin: 12/04/20 10:40 Dose: 125 mls/hr Documented by: Ceftriaxone Sodium (Rocephin/Ns 2 Gm/100 Ml) 2 gm in 100 mls @ 200 mls/hr IV Q12HR [facility]; Protocol Last Admin: 12/04/20 10:37 Dose: 200 mls/hr Documented by: Acyclovir 800 mg/ Sodium (Chloride) 116 mls @ 100 mls/hr IV Q8H [facility]; Protocol Vancomycin HCl 1,250 mg/ (Sodium Chloride) 275 mls @ 183.333 mls/hr IV Q12H [facility] Magnesium Hydroxide (Magnesium Hydroxide (Mom) Oral Liqd Udc) 30 ml PO Q4H PRN PRN Reason: Constipation Metoclopramide HCl (Metoclopramide 10 Mg/2 Ml Inj) 10 mg IV Q6H PRN PRN Reason: Nausea And Vomiting Naloxone HCl (Naloxone 0.4 Mg/1 Ml Inj) 0.1 mg IV Q2MIN PRN PRN Reason: Res Rate </= 8 or 02 SAT < 92% Ondansetron HCl (Ondansetron 4 Mg/2 Ml Inj) 4 mg IV Q8H PRN PRN Reason: Nausea And Vomiting Oxycodone/Acetaminophen (Oxycodone /Acetaminophen 5-325mg Tab) 1 tab PO Q6H PRN PRN Reason: Pain, Moderate (4-6) Senna (Sennosides 8.6 Mg Tab) 8.6 mg PO Q12HR PRN PRN Reason: Constipation Sodium Chloride (Sodium Chloride 0.9% 10 Ml Flush Syringe) 10 ml IV BID [facility] Last Admin: 12/04/20 10:38 Dose: 10 ml Documented by: Sodium Chloride (Sodium Chloride 0.9% 10 Ml Flush Syringe) 10 ml IV PRN PRN PRN Reason: LINE FLUSH Tramadol HCl (Tramadol 50 Mg Tab) 50 mg PO Q6H PRN PRN Reason: Pain, Moderate (4-6) Trazodone HCl (Trazodone 50 Mg Tab) 50 mg PO QHS PRN PRN Reason: Insomnia Last Admin: 12/03/20 23:02 Dose: 50 mg Documented by: Mental Status Exam - Vital signs Last Vital Signs Temp 97.5 F L 12/04/20 04:15 Pulse 112 H 12/04/20 04:15 Resp 17 12/04/20 04:15 BP 113/71 12/04/20 04:15 Pulse Ox 98 12/04/20 04:15 Results Result Diagrams: 12/04/20 03:31 12/04/20 03:31 Abnormal lab results 12/04/20 Range/Units 03:31 RBC 5.21 H (3.65-5.03) M/mm3 Hgb 15.5 H (11.8-15.2) gm/dl All other labs normal.
[2020-12-04] MEDS: ACYCLOVIR 800 MG in SODIUM CHLORIDE 0.9% 100 ML IV SCH ×2 (12:41→19:49)
--- NOTE | 2020-12-04 13:31 | Event Note ---
Date: 12/04/20 Called father, Dylan Toth at [phone] and gave update.
[2020-12-04] MEDS: VANCOMYCIN 1,250 MG in SODIUM CHLORIDE 0.9% 250ML 250 ML IV SCH (21:22)
[2020-12-05] MEDS: ACYCLOVIR 800 MG in SODIUM CHLORIDE 0.9% 100 ML IV SCH ×3 (02:00→17:43)
[2020-12-05] MEDS: SODIUM CHLORIDE 0.9% 1000 ML 1,000 ML IV SCH ×2 (05:46→17:43)
[2020-12-05] MEDS: FAMOTIDINE 20 MG/2 ML INJ IV SCH ×2 (09:15→22:31)
[2020-12-05] MEDS: ENOXAPARIN 40 MG/0.4 ML INJ SUB-Q SCH (09:16)
[2020-12-05] MEDS: cefTRIAXone/NS 2 GM/100 ML 2 GM/100 ML BAG IV SCH ×2 (09:16→22:32)
--- NOTE | 2020-12-05 10:20 | Progress Note ---
Assessment and Plan Assessment and plan: (1) Encephalopathy acute Current Visit: Yes Status: Acute Plan to address problem: Questionable cause CT of the head negative for acute process Chest x-rayno acute finding Consults psych for mental status evaluation and treatment recommendation (2) Tachycardia with heart rate 141-160 beats per minute Current Visit: Yes Plan to address problem: Patient came in with altered mental status and sinus tachycardia Chest x-ray is done no acute finding Will continue IV hydration (3) Leukocytosis Current Visit: Yes Status: Acute Plan to address problem: Unknown causelikely reactive/infection Patient has no evidence of sepsis Monitor WBCblood culture x2 (4) DVT prophylaxis Current Visit: Yes Status: Acute Plan to address problem: Subcutaneous level 12/03/20 Patient with altered mental status, tachycardia. MRI Brain negative. Still has tachycardia, on iv fluids Neurology to evaluate 12/04/20 patient with altered mental status, tachycardia. MRI Brain without contrast is negative. He was evaluated by Neurologist and he noted poss seizures, poss encephalitis. I consulted GENE Mansfield for possible encephalitis and discussed case with her. She recommends starting Ceftriaxone, Vancomycin and Acyclovir and obtain Lumbar puncture for CSF analysis. 12/05/20 Patient with altered mental status, tachycardia. MRI Brain without contrast is negative. He was evaluated by Neurologist and he noted poss seizures, poss encephalitis. I consulted GENE Mansfield for possible encephalitis and discussed case with her. She recommended starting Ceftriaxone, Vancomycin and Acyclovir which was started yesterday. I discussed with Dr. Hernandez today, she will re-evaluate to determine if Lumbar puncture for CSF analysis is needed Psych also following.. History Interval history: Altered mental status Hospitalist Physical - Physical exam Narrative exam: Gen:Not in acute distress, lying in bed HEENT:Normocephalic, atraumatic Neck:supple, no JVD Lungs: clear to auscultation ,no wheeze Heart:S1 and S2 reg, no murmurs, rubs or gallop Abd:Soft, non tender, non distended, normal bowel sounds Ext:No edema. no clubbing, no cyanosis Neuro:Awake, alert, currently oriented in person,place, time, moves all ext - Constitutional Vitals: Temp Pulse Resp BP Pulse Ox 97.6 F 86 18 106/64 97 12/05/20 05:29 12/05/20 05:29 12/05/20 05:29 12/05/20 05:29 12/05/20 05:29 General appearance: Present: well-nourished Results - Labs CBC & Chem 7: 12/04/20 03:31 12/04/20 03:31 Labs: Laboratory Last Values WBC 10.3 K/mm3 (4.5-11.0) 12/04/20 03:31 RBC 5.21 M/mm3 (3.65-5.03) H 12/04/20 03:31 Hgb 15.5 gm/dl (11.8-15.2) H 12/04/20 03:31 Hct 45.5 % (35.5-45.6) 12/04/20 03:31 MCV 87 fl (84-94) 12/04/20 03:31 MCH 30 pg (28-32) 12/04/20 03:31 MCHC 34 % (32-34) 12/04/20 03:31 RDW 13.5 % (13.2-15.2) 12/04/20 03:31 Plt Count 244 K/mm3 (140-440) 12/04/20 03:31 Lymph % (Auto) 23.4 % (13.4-35.0) 12/03/20 04:50 [place] % (Auto) 6.6 % (0.0-7.3) 12/03/20 04:50 Eos % (Auto) 1.4 % (0.0-4.3) 12/03/20 04:50 Baso % (Auto) 0.8 % (0.0-1.8) 12/03/20 04:50 Lymph # (Auto) 2.5 K/mm3 (1.2-5.4) 12/03/20 04:50 [place] # (Auto) 0.7 K/mm3 (0.0-0.8) 12/03/20 04:50 Eos # (Auto) 0.1 K/mm3 (0.0-0.4) 12/03/20 04:50 Baso # (Auto) 0.1 K/mm3 (0.0-0.1) 12/03/20 04:50 Seg Neutrophils % 67.8 % (40.0-70.0) 12/03/20 04:50 Seg Neutrophils # 7.1 K/mm3 (1.8-7.7) 12/03/20 04:50 Sodium 142 mmol/L (137-145) 12/04/20 03:31 Potassium 3.8 mmol/L (3.6-5.0) 12/04/20 03:31 Chloride 102.2 mmol/L (98-107) 12/04/20 03:31 Carbon Dioxide 26 mmol/L (22-30) 12/04/20 03:31 Anion Gap 18 mmol/L 12/04/20 03:31 BUN 12 mg/dL (9-20) 12/04/20 03:31 Creatinine 1.0 mg/dL (0.8-1.3) 12/04/20 03:31 Estimated GFR > 60 ml/min 12/04/20 03:31 BUN/Creatinine Ratio 12 % 12/04/20 03:31 Glucose 96 mg/dL (75-100) 12/04/20 03:31 Calcium 9.4 mg/dL (8.4-10.2) 12/04/20 03:31 Total Bilirubin 0.30 mg/dL (0.1-1.2) 12/03/20 04:50 AST 20 units/L (5-40) 12/03/20 04:50 ALT 22 units/L (7-56) 12/03/20 04:50 Alkaline Phosphatase 75 units/L (35-129) 12/03/20 04:50 Ammonia 39.0 umol/L (25-60) 12/02/20 19:23 Total Creatine Kinase 116 units/L (55-170) 12/02/20 19:23 Total Protein 6.7 g/dL (6.3-8.2) 12/03/20 04:50 Albumin 4.1 g/dL (3.9-5) 12/03/20 04:50 Albumin/Globulin Ratio 1.6 % 12/03/20 04:50 TSH 0.676 mlU/mL (0.270-4.200) 12/02/20 19:23 Urine Color Yellow (Yellow) 12/02/20 Unknown Urine Turbidity Cloudy (Clear) 12/02/20 Unknown Urine pH 8.0 (5.0-7.0) H 12/02/20 Unknown Ur Specific [place] 1.023 (1.003-1.030) 12/02/20 Unknown Urine Protein 100 mg/dl mg/dL (Negative) 12/02/20 Unknown Urine Glucose (UA) Neg mg/dL (Negative) 12/02/20 Unknown Urine Ketones Tr mg/dL (Negative) 12/02/20 Unknown Urine Blood Neg (Negative) 12/02/20 Unknown Urine Nitrite Neg (Negative) 12/02/20 Unknown Urine Bilirubin Neg (Negative) 12/02/20 Unknown Urine Urobilinogen < 2.0 mg/dL (<2.0) 12/02/20 Unknown Ur Leukocyte Esterase Neg (Negative) 12/02/20 Unknown Urine WBC (Auto) 2.0 /HPF (0.0-6.0) 12/02/20 Unknown Urine RBC (Auto) 1.0 /HPF (0.0-6.0) 12/02/20 Unknown Urine Bacteria (Auto) 1+ /HPF (Negative) 12/02/20 Unknown Urine Yeast (Budding) 2+ /HPF 12/02/20 Unknown Urine Opiates Screen Negative 12/02/20 Unknown Urine Methadone Screen Negative 12/02/20 Unknown Ur Barbiturates Screen Negative 12/02/20 Unknown Ur Phencyclidine Scrn Negative 12/02/20 Unknown Ur Amphetamines Screen Negative 12/02/20 Unknown U Benzodiazepines Scrn Negative 12/02/20 Unknown Urine Cocaine Screen Negative 12/02/20 Unknown U Marijuana (THC) Screen Negative 12/02/20 Unknown Drugs of Abuse Note Disclamer 12/02/20 Unknown Plasma/Serum Alcohol < 0.01 % (0-0.07) 12/02/20 19:23 Microbiology: Microbiology 12/03/20 05:15 Peripheral/Venous Blood Culture - Preliminary NO GROWTH AFTER 48 HOURS 12/03/20 05:45 Peripheral/Venous Blood Culture - Preliminary NO GROWTH AFTER 48 HOURS Active Medications - Current Medications Current Medications: Generic Name Dose Route Start Last Admin Trade Name Freq PRN Reason Stop Dose Admin Acetaminophen 650 mg 12/02/20 23:17 Acetaminophen 325 Mg Tab PO Q4H PRN Pain MILD(1-3)/Fever >100.5/STALEY Al Hydrox/Mg Hydrox/Simethicone 30 ml 12/02/20 23:17 Alum-Mag Hydroxide-Simethicone [phone]/5ml Oral Liqd 30 Ml PO Q4H PRN Indigestion Enoxaparin Sodium 40 mg 12/03/20 10:00 12/05/20 09:16 Enoxaparin 40 Mg/0.4 Ml Inj SUB-Q 40 mg QDAY ABHAY Administration Famotidine 20 mg 12/03/20 10:00 12/05/20 09:15 Famotidine 20 Mg/2 Ml Inj IV 20 mg BID ABHAY Administration Hydralazine HCl 5 mg 12/02/20 23:21 Hydralazine 20 Mg/1 Ml Inj IV Q4HR PRN Hypertension Sodium Chloride 1,000 mls @ 125 mls/hr 12/02/20 23:30 12/05/20 05:46 Nacl 0.9% 1000 Ml IV 125 mls/hr DIRECT ABHAY Administration Ceftriaxone Sodium 2 gm in 100 mls @ 200 mls/hr 12/04/20 10:00 12/05/20 09:16 Rocephin/Ns 2 Gm/100 Ml IV 200 mls/hr Q12HR ABHAY Administration Protocol Acyclovir 800 mg/ Sodium 116 mls @ 100 mls/hr 12/04/20 10:00 12/05/20 09:16 Chloride IV 100 mls/hr Q8H ABHAY Administration Protocol Vancomycin HCl 1,250 mg/ 275 mls @ 183.333 mls/hr 12/04/20 22:00 12/04/20 21:22 Sodium Chloride IV 183.333 mls/hr Q12H ABHAY Administration Magnesium Hydroxide 30 ml 12/02/20 23:17 Magnesium Hydroxide (Mom) Oral Liqd Udc PO Q4H PRN Constipation Metoclopramide HCl 10 mg 12/02/20 23:17 Metoclopramide 10 Mg/2 Ml Inj IV Q6H PRN Nausea And Vomiting Naloxone HCl 0.1 mg 12/02/20 23:17 Naloxone 0.4 Mg/1 Ml Inj IV Q2MIN PRN Res Rate </= 8 or 02 SAT < 92% Ondansetron HCl 4 mg 12/02/20 23:17 Ondansetron 4 Mg/2 Ml Inj IV Q8H PRN Nausea And Vomiting Oxycodone/Acetaminophen 1 tab 12/02/20 23:17 Oxycodone /Acetaminophen 5-325mg Tab PO Q6H PRN Pain, Moderate (4-6) Senna 8.6 mg 12/02/20 23:17 Sennosides 8.6 Mg Tab PO Q12HR PRN Constipation Sodium Chloride 10 ml 12/02/20 23:45 12/05/20 09:16 Sodium Chloride 0.9% 10 Ml Flush Syringe IV 10 ml BID ABHAY Administration Sodium Chloride 10 ml 12/02/20 23:17 Sodium Chloride 0.9% 10 Ml Flush Syringe IV PRN PRN LINE FLUSH Tramadol HCl 50 mg 12/02/20 23:21 Tramadol 50 Mg Tab PO Q6H PRN Pain, Moderate (4-6) Trazodone HCl 50 mg 12/02/20 23:21 12/03/20 23:02 Trazodone 50 Mg Tab PO 50 mg QHS PRN Administration Insomnia
[2020-12-05] MEDS: VANCOMYCIN 1,250 MG in SODIUM CHLORIDE 0.9% 250ML 250 ML IV SCH ×2 (12:18→22:32)
--- NOTE | 2020-12-05 16:58 | Consultation ---
History of Present Illness - Reason for Consult Consult date: 12/05/20 R/o encephalitis - History of Present Illness 20-year-old male with no medical history admitted 12/03/2020 on secondary to al tered mental status for few hours. Patient is not the best historian even speaking in Arabic with him. Patient with flat affect, poor eye contact. Patient does not remember any details of why he came to the hospital. He reports family so he is not doing well. Patient denies any drugs, alcohol. He does smoke. 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 Patient denies history of schizophrenia, seizures, previous altered mental status. Denies recent travels. Denies any recent history of ear infection, dental infection. Denies any fever, chills, headaches. Per report admission he was having some nausea and vomiting. On arrival, temperature 98.5, HR 120, RR 15, O2 sat 100%, BP 130/74. Initial WBC 13.7. LFTs within normal limits. Creatinine normal. Urinalysis negative. Urine drug screen negative. Chest x- ray negative. CT of the head negative. Brain MRI unremarkable. Review of Systems: positive in bold print limited, patient is not the best historian General: fever, chills, malaise Cutaneous: rash, pruritus Head: headaches or injury Eyes: changes in vision, eye pain, double vision Ears: ear pain, ear discharge, ringing or hearing loss Nose: nose bleeding, stuffiness Mouth & throat: bleeding gums, horseness, no dental problems, or swollen glands Neck: no pain, node enlargement/lumps, tyroid enlargement or tenderness Respiratory: SOB, cough, [place], wheezing, sputum, hemoptysis, pleuritic chest pain Cardiovascular: chest pain, leg edema, cyanosis, [place], orthopnea Musculoskeletal: edema, deformities, pain Gastrointestinal: nausea, vomiting, hematemesis, diarrhea, constipation, melena, bright red blood in stools, fecal incontinence, jaundice Genitourinary/Reproductive: frequent urination, dysuria, hematuria, incontinence Neurogical: seizures, headaches, weakness, paresthesias, loss of speech or vision; memory loss, vertigo, tremors, numbness Psychiatric: stable mood; excessive anxiety, sadness or moodiness Past History Past Medical History: No medical history Past Surgical History: No surgical history Social history: no significant social history Family history: no significant family history (Patient came in with altered mental status, unable to get information from patient) Medications and Allergies Allergies Allergy/AdvReac Type Severity Reaction Status Date / Time Unable to Assess Allergy Verified 12/02/20 19:23 Active Meds: Active Medications Acetaminophen (Acetaminophen 325 Mg Tab) 650 mg PO Q4H PRN PRN Reason: Pain MILD(1-3)/Fever >100.5/STALEY Al Hydrox/Mg Hydrox/Simethicone (Alum-Mag Hydroxide-Simethicone [phone]/5ml Oral Liqd 30 Ml) 30 ml PO Q4H PRN PRN Reason: Indigestion Enoxaparin Sodium (Enoxaparin 40 Mg/0.4 Ml Inj) 40 mg SUB-Q QDAY ABHAY Last Admin: 12/05/20 09:16 Dose: 40 mg Documented by: Famotidine (Famotidine 20 Mg/2 Ml Inj) 20 mg IV BID ABHAY Last Admin: 12/05/20 09:15 Dose: 20 mg Documented by: Hydralazine HCl (Hydralazine 20 Mg/1 Ml Inj) 5 mg IV Q4HR PRN PRN Reason: Hypertension Sodium Chloride (Nacl 0.9% 1000 Ml) 1,000 mls @ 125 mls/hr IV DIRECT ABHAY Last Admin: 12/05/20 05:46 Dose: 125 mls/hr Documented by: Ceftriaxone Sodium (Rocephin/Ns 2 Gm/100 Ml) 2 gm in 100 mls @ 200 mls/hr IV Q12HR ABHAY; Protocol Last Admin: 12/05/20 09:16 Dose: 200 mls/hr Documented by: Acyclovir 800 mg/ Sodium (Chloride) 116 mls @ 100 mls/hr IV Q8H ABHAY; Protocol Last Admin: 12/05/20 09:16 Dose: 100 mls/hr Documented by: Vancomycin HCl 1,250 mg/ (Sodium Chloride) 275 mls @ 183.333 mls/hr IV Q12H ABHAY Last Admin: 12/05/20 12:18 Dose: 183.333 mls/hr Documented by: Magnesium Hydroxide (Magnesium Hydroxide (Mom) Oral Liqd Udc) 30 ml PO Q4H PRN PRN Reason: Constipation Metoclopramide HCl (Metoclopramide 10 Mg/2 Ml Inj) 10 mg IV Q6H PRN PRN Reason: Nausea And Vomiting Naloxone HCl (Naloxone 0.4 Mg/1 Ml Inj) 0.1 mg IV Q2MIN PRN PRN Reason: Res Rate </= 8 or 02 SAT < 92% Ondansetron HCl (Ondansetron 4 Mg/2 Ml Inj) 4 mg IV Q8H PRN PRN Reason: Nausea And Vomiting Oxycodone/Acetaminophen (Oxycodone /Acetaminophen 5-325mg Tab) 1 tab PO Q6H PRN PRN Reason: Pain, Moderate (4-6) Senna (Sennosides 8.6 Mg Tab) 8.6 mg PO Q12HR PRN PRN Reason: Constipation Sodium Chloride (Sodium Chloride 0.9% 10 Ml Flush Syringe) 10 ml IV BID ABHAY Last Admin: 12/05/20 09:16 Dose: 10 ml Documented by: Sodium Chloride (Sodium Chloride 0.9% 10 Ml Flush Syringe) 10 ml IV PRN PRN PRN Reason: LINE FLUSH Tramadol HCl (Tramadol 50 Mg Tab) 50 mg PO Q6H PRN PRN Reason: Pain, Moderate (4-6) Trazodone HCl (Trazodone 50 Mg Tab) 50 mg PO QHS PRN PRN Reason: Insomnia Last Admin: 12/03/20 23:02 Dose: 50 mg Documented by: Physical Examination - Physical Exam Narrative exam: General appearance: Alert in NAD flat affect Eyes: anicteric sclerae, moist conjunctivae; no lid-lag; PERRLA HENT: Normocephalic, Atraumatic; normal external ears, nares open, oropharynx clear with moist mucous membranes and no oral thrush; normal hard and soft palate. Neck: supple, tracheal midline, no JVD Lungs: CTA, with normal respiratory effort and no intercostal retractions CV: RRR no murmur Abdomen: Soft, non-tender; no masses or hepatosplenomegaly Extremities: no edema, no cyanosis Skin: No rash. Psych: no agitated flat affect Neuro: alert and oriented x 3. Moving all extermities - Constitutional Vitals: Vital Signs Temp Pulse Resp BP Pulse Ox 98.1 F 89 18 115/72 97 12/05/20 08:38 12/05/20 15:00 12/05/20 12:00 12/05/20 08:38 12/05/20 12:00 Temperature -Last 24 Hours Temperature 98.1 F Temperature 97.6 F Temperature 98.3 F Results - Labs CBC & Chem 7: 12/04/20 03:31 12/04/20 03:31 Assessment and Plan Cultures: 12/03/2020 blood culture no growth today Assessment: 20-year-old male with no medical history admitted on 12/03/2020 secondary to altered mental status for few hours: #SIRS: Of unclear etiology. Presented with tachycardia and leukocytosis. Currently resolved. Urinalysis negative. Chest x-ray negative. Blood cultures negative. #Acute encephalopathy: Of unclear etiology. No recent fever, headaches, head trauma. Patient has recovered, talking however flat affect, poor eye contact. No fever documented in patient. Again he denies any headaches currently. The possibility of infectious encephalitis/meningitis very unlikely. MRI unremarkable. CT of the head negative. Chest x-ray negative. Urine drug screen negative. Recommendations: -Agree with lumbar puncture, send CSF for Gram stain, culture, cell count, differential, VDRL, cryptococcal antigen, HSV PCR; however doubt encephalitis/meningitis -Should obtain EKG evaluation for seizures -Continue ceftriaxone 2 g IV once a day, vancomycin with PK consult, acyclovir IV for now -If CSF is normal okay to discharge home with neurology evaluation as an outpatient -Psych evaluation noted -Procal/crp Will follow. Kay Crawley MD Infectious Diseases [facility] ([facility] M [phone] O [phone]
[2020-12-06] MEDS: ACYCLOVIR 800 MG in SODIUM CHLORIDE 0.9% 100 ML IV SCH ×3 (02:54→18:07)
[2020-12-06 09:23] LABS: Blood Urea Nitrogen 10 mg/dL (9-20); Hemolysis Index 24
[2020-12-06 09:28] LABS: BUN/Creatinine Ratio 14
[2020-12-06 10:21] LABS: INR 1.04 (0.87-1.13); Partial Thromboplastin Time 27.5 Sec. (24.2-36.6)
[2020-12-06] MEDS: VANCOMYCIN 1,250 MG in SODIUM CHLORIDE 0.9% 250ML 250 ML IV SCH (10:55)
[2020-12-06] MEDS: FAMOTIDINE 20 MG/2 ML INJ IV SCH ×2 (11:00→22:41)
[2020-12-06] MEDS: cefTRIAXone/NS 2 GM/100 ML 2 GM/100 ML BAG IV SCH ×2 (11:00→22:41)
[2020-12-06] MEDS: ENOXAPARIN 40 MG/0.4 ML INJ SUB-Q SCH (11:01)
[2020-12-06] MEDS: VANCOMYCIN 1,750 MG in SODIUM CHLORIDE 0.9% 500 ML 500 ML IV SCH ×2 (11:43→23:35)
--- NOTE | 2020-12-06 12:34 | Progress Note ---
Assessment and Plan Assessment and plan: (1) Encephalopathy acute Current Visit: Yes Status: Acute Plan to address problem: Questionable cause CT of the head negative for acute process Chest x-rayno acute finding Consults psych for mental status evaluation and treatment recommendation (2) Tachycardia with heart rate 141-160 beats per minute Current Visit: Yes Plan to address problem: Patient came in with altered mental status and sinus tachycardia Chest x-ray is done no acute finding Will continue IV hydration (3) Leukocytosis Current Visit: Yes Status: Acute Plan to address problem: Unknown causelikely reactive/infection Patient has no evidence of sepsis Monitor WBCblood culture x2 (4) DVT prophylaxis Current Visit: Yes Status: Acute Plan to address problem: Subcutaneous level 12/03/20 Patient with altered mental status, tachycardia. MRI Brain negative. Still has tachycardia, on iv fluids Neurology to evaluate 12/04/20 patient with altered mental status, tachycardia. MRI Brain without contrast is negative. He was evaluated by Neurologist and he noted poss seizures, poss encephalitis. I consulted GENE Mansfield for possible encephalitis and discussed case with her. She recommends starting Ceftriaxone, Vancomycin and Acyclovir and obtain Lumbar puncture for CSF analysis. 12/05/20 Patient with altered mental status, tachycardia. MRI Brain without contrast is negative. He was evaluated by Neurologist and he noted poss seizures, poss encephalitis. I consulted GENE Mansfield for possible encephalitis and discussed case with her. She recommended starting Ceftriaxone, Vancomycin and Acyclovir which was started yesterday. I discussed with Dr. Hernandez today, she will re-evaluate to determine if Lumbar puncture for CSF analysis is needed Psych also following.. 12/06/20 Patient with altered mental status, tachycardia. MRI Brain without contrast is negative. He was evaluated by Neurologist and he noted poss seizures, poss encephalitis. I consulted GENE Mansfield for possible encephalitis and discussed case with her. She recommended starting Ceftriaxone, Vancomycin and Acyclovir, started. For LP and CSF exam. Psych also following.. Follow up EEG, LP and CSF results History Interval history: Altered mental status Was called by Radiology Dept that father reluctant to give consent for LP. I discussed with Dr. Hernandez, she spoke to him and he consented Hospitalist Physical - Physical exam Narrative exam: Gen:Not in acute distress, lying in bed HEENT:Normocephalic, atraumatic Neck:supple, no JVD Lungs: clear to auscultation ,no wheeze Heart:S1 and S2 reg, no murmurs, rubs or gallop Abd:Soft, non tender, non distended, normal bowel sounds Ext:No edema. no clubbing, no cyanosis Neuro:Awake, alert, currently oriented in person,place, time, moves all ext - Constitutional Vitals: Temp Pulse Resp BP Pulse Ox 98.6 F 85 16 104/64 98 12/06/20 08:34 12/06/20 12:00 12/06/20 12:00 12/06/20 08:34 12/06/20 12:00 General appearance: Present: well-nourished Results - Labs CBC & Chem 7: 12/04/20 03:31 12/06/20 08:39 Labs: Laboratory Last Values WBC 10.3 K/mm3 (4.5-11.0) 12/04/20 03:31 RBC 5.21 M/mm3 (3.65-5.03) H 12/04/20 03:31 Hgb 15.5 gm/dl (11.8-15.2) H 12/04/20 03:31 Hct 45.5 % (35.5-45.6) 12/04/20 03:31 MCV 87 fl (84-94) 12/04/20 03:31 MCH 30 pg (28-32) 12/04/20 03:31 MCHC 34 % (32-34) 12/04/20 03:31 RDW 13.5 % (13.2-15.2) 12/04/20 03:31 Plt Count 244 K/mm3 (140-440) 12/04/20 03:31 Lymph % (Auto) 23.4 % (13.4-35.0) 12/03/20 04:50 [place] % (Auto) 6.6 % (0.0-7.3) 12/03/20 04:50 Eos % (Auto) 1.4 % (0.0-4.3) 12/03/20 04:50 Baso % (Auto) 0.8 % (0.0-1.8) 12/03/20 04:50 Lymph # (Auto) 2.5 K/mm3 (1.2-5.4) 12/03/20 04:50 [place] # (Auto) 0.7 K/mm3 (0.0-0.8) 12/03/20 04:50 Eos # (Auto) 0.1 K/mm3 (0.0-0.4) 12/03/20 04:50 Baso # (Auto) 0.1 K/mm3 (0.0-0.1) 12/03/20 04:50 Seg Neutrophils % 67.8 % (40.0-70.0) 12/03/20 04:50 Seg Neutrophils # 7.1 K/mm3 (1.8-7.7) 12/03/20 04:50 PT 14.1 Sec. (12.2-14.9) 12/06/20 08:39 INR 1.04 (0.87-1.13) 12/06/20 08:39 APTT 27.5 Sec. (24.2-36.6) 12/06/20 08:39 Sodium 139 mmol/L (137-145) 12/06/20 08:39 Potassium 4.4 mmol/L (3.6-5.0) 12/06/20 08:39 Chloride 102.4 mmol/L (98-107) 12/06/20 08:39 Carbon Dioxide 28 mmol/L (22-30) 12/06/20 08:39 Anion Gap 13 mmol/L 12/06/20 08:39 BUN 10 mg/dL (9-20) 12/06/20 08:39 Creatinine 0.7 mg/dL (0.8-1.3) L 12/06/20 08:39 Estimated GFR > 60 ml/min 12/06/20 08:39 BUN/Creatinine Ratio 14 % 12/06/20 08:39 Glucose 98 mg/dL (75-100) 12/06/20 08:39 Calcium 10.0 mg/dL (8.4-10.2) 12/06/20 08:39 Total Bilirubin 0.30 mg/dL (0.1-1.2) 12/03/20 04:50 AST 20 units/L (5-40) 12/03/20 04:50 ALT 22 units/L (7-56) 12/03/20 04:50 Alkaline Phosphatase 75 units/L (35-129) 12/03/20 04:50 Ammonia 39.0 umol/L (25-60) 12/02/20 19:23 Total Creatine Kinase 116 units/L (55-170) 12/02/20 19:23 Total Protein 6.7 g/dL (6.3-8.2) 12/03/20 04:50 Albumin 4.1 g/dL (3.9-5) 12/03/20 04:50 Albumin/Globulin Ratio 1.6 % 12/03/20 04:50 TSH 0.676 mlU/mL (0.270-4.200) 12/02/20 19:23 Urine Color Yellow (Yellow) 12/02/20 Unknown Urine Turbidity Cloudy (Clear) 12/02/20 Unknown Urine pH 8.0 (5.0-7.0) H 12/02/20 Unknown Ur Specific [place] 1.023 (1.003-1.030) 12/02/20 Unknown Urine Protein 100 mg/dl mg/dL (Negative) 12/02/20 Unknown Urine Glucose (UA) Neg mg/dL (Negative) 12/02/20 Unknown Urine Ketones Tr mg/dL (Negative) 12/02/20 Unknown Urine Blood Neg (Negative) 12/02/20 Unknown Urine Nitrite Neg (Negative) 12/02/20 Unknown Urine Bilirubin Neg (Negative) 12/02/20 Unknown Urine Urobilinogen < 2.0 mg/dL (<2.0) 12/02/20 Unknown Ur Leukocyte Esterase Neg (Negative) 12/02/20 Unknown Urine WBC (Auto) 2.0 /HPF (0.0-6.0) 12/02/20 Unknown Urine RBC (Auto) 1.0 /HPF (0.0-6.0) 12/02/20 Unknown Urine Bacteria (Auto) 1+ /HPF (Negative) 12/02/20 Unknown Urine Yeast (Budding) 2+ /HPF 12/02/20 Unknown Vancomycin Trough 6.9 ug/mL (5.0-20.0) 12/06/20 08:39 Urine Opiates Screen Negative 12/02/20 Unknown Urine Methadone Screen Negative 12/02/20 Unknown Ur Barbiturates Screen Negative 12/02/20 Unknown Ur Phencyclidine Scrn Negative 12/02/20 Unknown Ur Amphetamines Screen Negative 12/02/20 Unknown U Benzodiazepines Scrn Negative 12/02/20 Unknown Urine Cocaine Screen Negative 12/02/20 Unknown U Marijuana (THC) Screen Negative 12/02/20 Unknown Drugs of Abuse Note Disclamer 12/02/20 Unknown Plasma/Serum Alcohol < 0.01 % (0-0.07) 12/02/20 19:23 Microbiology: Microbiology 12/03/20 05:15 Peripheral/Venous Blood Culture - Preliminary NO GROWTH AFTER 72 HOURS 12/03/20 05:45 Peripheral/Venous Blood Culture - Preliminary NO GROWTH AFTER 72 HOURS Lam/IV: Voiding Method Toilet Active Medications - Current Medications Current Medications: Generic Name Dose Route Start Last Admin Trade Name Freq PRN Reason Stop Dose Admin Acetaminophen 650 mg 12/02/20 23:17 Acetaminophen 325 Mg Tab PO Q4H PRN Pain MILD(1-3)/Fever >100.5/STALEY Al Hydrox/Mg Hydrox/Simethicone 30 ml 12/02/20 23:17 Alum-Mag Hydroxide-Simethicone [phone]/5ml Oral Liqd 30 Ml PO Q4H PRN Indigestion Enoxaparin Sodium 40 mg 12/03/20 10:00 12/06/20 11:01 Enoxaparin 40 Mg/0.4 Ml Inj SUB-Q Not Given QDAY ABHAY Famotidine 20 mg 12/03/20 10:00 12/06/20 11:00 Famotidine 20 Mg/2 Ml Inj IV 20 mg BID ABHAY Administration Hydralazine HCl 5 mg 12/02/20 23:21 Hydralazine 20 Mg/1 Ml Inj IV Q4HR PRN Hypertension Sodium Chloride 1,000 mls @ 125 mls/hr 12/02/20 23:30 12/05/20 17:43 Nacl 0.9% 1000 Ml IV 125 mls/hr DIRECT ABHAY Administration Ceftriaxone Sodium 2 gm in 100 mls @ 200 mls/hr 12/04/20 10:00 12/06/20 11:00 Rocephin/Ns 2 Gm/100 Ml IV 200 mls/hr Q12HR ABHAY Administration Protocol Acyclovir 800 mg/ Sodium 116 mls @ 100 mls/hr 12/04/20 10:00 12/06/20 11:43 Chloride IV 100 mls/hr Q8H ABHAY Administration Protocol Vancomycin HCl 1,750 mg/ 535 mls @ 333.333 mls/hr 12/06/20 11:00 12/06/20 11:43 Sodium Chloride IV 333.333 mls/hr Q12H ABHAY Administration Magnesium Hydroxide 30 ml 12/02/20 23:17 Magnesium Hydroxide (Mom) Oral Liqd Udc PO Q4H PRN Constipation Metoclopramide HCl 10 mg 12/02/20 23:17 Metoclopramide 10 Mg/2 Ml Inj IV Q6H PRN Nausea And Vomiting Naloxone HCl 0.1 mg 12/02/20 23:17 Naloxone 0.4 Mg/1 Ml Inj IV Q2MIN PRN Res Rate </= 8 or 02 SAT < 92% Ondansetron HCl 4 mg 12/02/20 23:17 Ondansetron 4 Mg/2 Ml Inj IV Q8H PRN Nausea And Vomiting Oxycodone/Acetaminophen 1 tab 12/02/20 23:17 Oxycodone /Acetaminophen 5-325mg Tab PO Q6H PRN Pain, Moderate (4-6) Senna 8.6 mg 12/02/20 23:17 Sennosides 8.6 Mg Tab PO Q12HR PRN Constipation Sodium Chloride 10 ml 12/02/20 23:45 12/06/20 11:01 Sodium Chloride 0.9% 10 Ml Flush Syringe IV 10 ml BID ABHAY Administration Sodium Chloride 10 ml 12/02/20 23:17 Sodium Chloride 0.9% 10 Ml Flush Syringe IV PRN PRN LINE FLUSH Tramadol HCl 50 mg 12/02/20 23:21 Tramadol 50 Mg Tab PO Q6H PRN Pain, Moderate (4-6) Trazodone HCl 50 mg 12/02/20 23:21 12/03/20 23:02 Trazodone 50 Mg Tab PO 50 mg QHS PRN Administration Insomnia
--- NOTE | 2020-12-06 15:40 | Progress Note ---
Assessment and Plan Cultures: 12/03/2020 blood culture no growth today Assessment: 20-year-old male with no medical history admitted on 12/03/2020 secondary to altered mental status for few hours: #SIRS: Of unclear etiology. Presented with tachycardia and leukocytosis. Currently resolved. Urinalysis negative. Chest x-ray negative. Blood cultures negative. #Acute encephalopathy: Of unclear etiology. No recent fever, headaches, head trauma. Patient has recovered, talking however flat affect, poor eye contact. No fever documented in patient. Again he denies any headaches currently. The possibility of infectious encephalitis/meningitis very unlikely. MRI unremarkable. CT of the head negative. Chest x-ray negative. Urine drug screen negative. Recommendations: -Pending lumbar puncture, send CSF for Gram stain, culture, cell count, differential, VDRL, cryptococcal antigen, HSV PCR; however doubt encephalitis/meningitis -EEG evaluation for seizures -Continue ceftriaxone 2 g IV bid vancomycin with PK consult, acyclovir IV for now -If CSF is normal okay to discharge home with neurology evaluation as an outpatient -Psych evaluation noted -Procal/crp -Change peripheral IV suspect left arm blistering from acyclovir extravasation Will follow. Kay Crawley MD Infectious Diseases Publishing Editor [facility] ([facility]) M [phone] O [phone] Subjective Date of service: 12/06/20 Principal diagnosis: Altered mental status Interval history: Patient report feeling okay. Denies any headaches, any nausea, vomiting, fever, confusion. Reports some blistering on the left forearm likely from IV acyclovir infusion. Objective - Exam Narrative Exam: General appearance: Alert in NAD flat affect Eyes: anicteric sclerae, moist conjunctivae; no lid-lag; PERRLA HENT: Normocephalic, Atraumatic; normal external ears, nares open, oropharynx clear with moist mucous membranes and no oral thrush; normal hard and soft palate. Neck: supple, tracheal midline, no JVD Lungs: CTA, with normal respiratory effort and no intercostal retractions CV: RRR no murmur Abdomen: Soft, non-tender; no masses or hepatosplenomegaly Extremities: no edema, no cyanosis Skin: left arm blistering Psych: no agitated flat affect Neuro: alert and oriented x 3. Moving all extermities - Constitutional Vitals: Vital Signs Temp Pulse Resp BP Pulse Ox 98.6 F 85 16 104/64 98 12/06/20 08:34 12/06/20 12:00 12/06/20 12:00 12/06/20 08:34 12/06/20 12:00 Temperature -Last 24 Hours Temperature 98.6 F Temperature 97.0 F Temperature 97.9 F Temperature 99.1 F Temperature 98.2 F - Labs CBC & Chem 7: 12/04/20 03:31 12/06/20 08:39 Labs: Abnormal lab results 12/06/20 Range/Units 08:39 Creatinine 0.7 L (0.8-1.3) mg/dL
--- NOTE | 2020-12-06 17:00 | Magnetic Resonance Report ---
MR brain w con INDICATION / CLINICAL INFORMATION: 20 years Male; Altered mental status, req by Neuro. TECHNIQUE: Multiplanar, multisequence MR images of the brain were obtained. COMPARISON: The study is compared to the previous noncontrast MRI brain of 12/03/2020. FINDINGS: BRAIN / INTRACRANIAL CONTENTS: Additional postcontrast imaging reveals no evidence of intracranial en hancing lesions at. The ventricular system remains appropriate in size and configuration. CRANIOCERVICAL JUNCTION: No significant abnormality. ORBITS: No significant abnormality of visualized orbits. SINUSES / MASTOIDS: The visualized paranasal sinuses are pneumatized. ADDITIONAL FINDINGS: None. IMPRESSION: 1. Additional postcontrast imaging reveals no evidence of intracranial enhancing lesions. Signer Name: Connor Kraus MD Signed: 12/06/2020 4:55 PM Workstation Name: [id number]
[2020-12-07] MEDS: ACYCLOVIR 800 MG in SODIUM CHLORIDE 0.9% 100 ML IV SCH ×3 (02:45→20:35)
[2020-12-07 05:54] LABS: BUN/Creatinine Ratio 14; Blood Urea Nitrogen 11 mg/dL (9-20); Calcium 9.5 mg/dL (8.4-10.2); Hemolysis Index 8
[2020-12-07 05:58] LABS: Hematocrit 47.3 % (35.5-45.6); Hemoglobin 15.9 gm/dl (11.8-15.2); Mean Corpuscular HGB Conc 34 % (32-34); Mean Corpuscular Volume 87 fl (84-94); Platelet Count 244 K/mm3 (140-440); Red Blood Count 5.47 M/mm3 (3.65-5.03); Red Cell Distribution Width 13.4 % (13.2-15.2)
[2020-12-07] MEDS: cefTRIAXone/NS 2 GM/100 ML 2 GM/100 ML BAG IV SCH ×2 (11:23→21:44)
[2020-12-07] MEDS: ENOXAPARIN 40 MG/0.4 ML INJ SUB-Q SCH (11:24)
[2020-12-07] MEDS: FAMOTIDINE 20 MG/2 ML INJ IV SCH ×2 (11:24→21:45)
--- NOTE | 2020-12-07 15:12 | Progress Note ---
Assessment and Plan Assessment and plan: Mr. Toth is a 20-year-old Guamanian-speaking man with no significant past medical history who presented with altered mental status, leukocytosis, tachycardia. #Acute encephalopathy -Unclear etiology -CT head negative -Psych evaluation, no treatment recommended at this time -Infectious disease following, recs appreciated -LP performed today, awaiting CSF fluid studies -continue rocephin, acyclovir, and vancomycin per ID recs #Sinus tachycardia -Improving -EKG today shows sinus tachycardia -Continue telemetry #Leukocytosis -Improving -Blood cultures negative x4 days -We will continue to monitor History Interval history: Patient is primarily Guamanian-speaking, interview completed via deaf interpreter by blue phone. Patient is alert and oriented x3. No acute complaints at this time. Hospitalist Physical - Constitutional Vitals: Temp Pulse Resp BP Pulse Ox 98.8 F 68 18 103/67 100 12/07/20 11:57 12/07/20 11:57 12/07/20 11:57 12/07/20 11:57 12/07/20 14:24 General appearance: Present: no acute distress, well-nourished - EENT Eyes: Present: PERRL, EOM intact ENT: hearing intact - Respiratory Respiratory effort: normal Respiratory: bilateral: CTA - Cardiovascular Rhythm: regular - Extremities Extremities: pulses symmetrical, No edema, normal color - Abdominal General gastrointestinal: non-tender, non-distended - Psychiatric Psychiatric: appropriate mood/affect - Neurologic Neurologic: CNII-XII intact - Allied Health Allied health notes reviewed: nursing Results - Labs CBC & Chem 7: 12/07/20 04:41 12/07/20 04:41 Labs: Laboratory Last Values WBC 11.3 K/mm3 (4.5-11.0) H 12/07/20 04:41 RBC 5.47 M/mm3 (3.65-5.03) H 12/07/20 04:41 Hgb 15.9 gm/dl (11.8-15.2) H 12/07/20 04:41 Hct 47.3 % (35.5-45.6) H 12/07/20 04:41 MCV 87 fl (84-94) 12/07/20 04:41 MCH 29 pg (28-32) 12/07/20 04:41 MCHC 34 % (32-34) 12/07/20 04:41 RDW 13.4 % (13.2-15.2) 12/07/20 04:41 Plt Count 244 K/mm3 (140-440) 12/07/20 04:41 Lymph % (Auto) 23.4 % (13.4-35.0) 12/03/20 04:50 [place] % (Auto) 6.6 % (0.0-7.3) 12/03/20 04:50 Eos % (Auto) 1.4 % (0.0-4.3) 12/03/20 04:50 Baso % (Auto) 0.8 % (0.0-1.8) 12/03/20 04:50 Lymph # (Auto) 2.5 K/mm3 (1.2-5.4) 12/03/20 04:50 [place] # (Auto) 0.7 K/mm3 (0.0-0.8) 12/03/20 04:50 Eos # (Auto) 0.1 K/mm3 (0.0-0.4) 12/03/20 04:50 Baso # (Auto) 0.1 K/mm3 (0.0-0.1) 12/03/20 04:50 Seg Neutrophils % 67.8 % (40.0-70.0) 12/03/20 04:50 Seg Neutrophils # 7.1 K/mm3 (1.8-7.7) 12/03/20 04:50 PT 14.1 Sec. (12.2-14.9) 12/06/20 08:39 INR 1.04 (0.87-1.13) 12/06/20 08:39 APTT 27.5 Sec. (24.2-36.6) 12/06/20 08:39 Sodium 138 mmol/L (137-145) 12/07/20 04:41 Potassium 4.3 mmol/L (3.6-5.0) 12/07/20 04:41 Chloride 103.5 mmol/L (98-107) 12/07/20 04:41 Carbon Dioxide 27 mmol/L (22-30) 12/07/20 04:41 Anion Gap 12 mmol/L 12/07/20 04:41 BUN 11 mg/dL (9-20) 12/07/20 04:41 Creatinine 0.8 mg/dL (0.8-1.3) 12/07/20 04:41 Estimated GFR > 60 ml/min 12/07/20 04:41 BUN/Creatinine Ratio 14 % 12/07/20 04:41 Glucose 100 mg/dL (75-100) 12/07/20 04:41 Calcium 9.5 mg/dL (8.4-10.2) 12/07/20 04:41 Total Bilirubin 0.30 mg/dL (0.1-1.2) 12/03/20 04:50 AST 20 units/L (5-40) 12/03/20 04:50 ALT 22 units/L (7-56) 12/03/20 04:50 Alkaline Phosphatase 75 units/L (35-129) 12/03/20 04:50 Ammonia 39.0 umol/L (25-60) 12/02/20 19:23 Total Creatine Kinase 116 units/L (55-170) 12/02/20 19:23 C-Reactive Protein 0.50 mg/dL (0.00-1.30) 12/06/20 18:12 Total Protein 6.7 g/dL (6.3-8.2) 12/03/20 04:50 Albumin 4.1 g/dL (3.9-5) 12/03/20 04:50 Albumin/Globulin Ratio 1.6 % 12/03/20 04:50 Procalcitonin < 0.05 ng/mL (<0.15) 12/06/20 18:12 TSH 0.676 mlU/mL (0.270-4.200) 12/02/20 19:23 Urine Color Yellow (Yellow) 12/02/20 Unknown Urine Turbidity Cloudy (Clear) 12/02/20 Unknown Urine pH 8.0 (5.0-7.0) H 12/02/20 Unknown Ur Specific [place] 1.023 (1.003-1.030) 12/02/20 Unknown Urine Protein 100 mg/dl mg/dL (Negative) 12/02/20 Unknown Urine Glucose (UA) Neg mg/dL (Negative) 12/02/20 Unknown Urine Ketones Tr mg/dL (Negative) 12/02/20 Unknown Urine Blood Neg (Negative) 12/02/20 Unknown Urine Nitrite Neg (Negative) 12/02/20 Unknown Urine Bilirubin Neg (Negative) 12/02/20 Unknown Urine Urobilinogen < 2.0 mg/dL (<2.0) 12/02/20 Unknown Ur Leukocyte Esterase Neg (Negative) 12/02/20 Unknown Urine WBC (Auto) 2.0 /HPF (0.0-6.0) 12/02/20 Unknown Urine RBC (Auto) 1.0 /HPF (0.0-6.0) 12/02/20 Unknown Urine Bacteria (Auto) 1+ /HPF (Negative) 12/02/20 Unknown Urine Yeast (Budding) 2+ /HPF 12/02/20 Unknown Vancomycin Trough 6.9 ug/mL (5.0-20.0) 12/06/20 08:39 Urine Opiates Screen Negative 12/02/20 Unknown Urine Methadone Screen Negative 12/02/20 Unknown Ur Barbiturates Screen Negative 12/02/20 Unknown Ur Phencyclidine Scrn Negative 12/02/20 Unknown Ur Amphetamines Screen Negative 12/02/20 Unknown U Benzodiazepines Scrn Negative 12/02/20 Unknown Urine Cocaine Screen Negative 12/02/20 Unknown U Marijuana (THC) Screen Negative 12/02/20 Unknown Drugs of Abuse Note Disclamer 12/02/20 Unknown Plasma/Serum Alcohol < 0.01 % (0-0.07) 12/02/20 19:23 Microbiology: Microbiology 12/03/20 05:15 Peripheral/Venous Blood Culture - Preliminary NO GROWTH AFTER 4 DAYS 12/03/20 05:45 Peripheral/Venous Blood Culture - Preliminary NO GROWTH AFTER 4 DAYS Lam/IV: Voiding Method Toilet Active Medications - Current Medications Current Medications: Generic Name Dose Route Start Last Admin Trade Name Freq PRN Reason Stop Dose Admin Acetaminophen 650 mg 12/02/20 23:17 Acetaminophen 325 Mg Tab PO Q4H PRN Pain MILD(1-3)/Fever >100.5/STALEY Al Hydrox/Mg Hydrox/Simethicone 30 ml 12/02/20 23:17 Alum-Mag Hydroxide-Simethicone [id number]/5ml Oral Liqd 30 Ml PO Q4H PRN Indigestion Enoxaparin Sodium 40 mg 12/03/20 10:00 12/07/20 11:24 Enoxaparin 40 Mg/0.4 Ml Inj SUB-Q Not Given QDAY ABHAY Famotidine 20 mg 12/03/20 10:00 12/07/20 11:24 Famotidine 20 Mg/2 Ml Inj IV 20 mg BID ABHAY Administration Hydralazine HCl 5 mg 12/02/20 23:21 Hydralazine 20 Mg/1 Ml Inj IV Q4HR PRN Hypertension Sodium Chloride 1,000 mls @ 125 mls/hr 12/02/20 23:30 12/05/20 17:43 Nacl 0.9% 1000 Ml IV 125 mls/hr DIRECT ABHAY Administration Ceftriaxone Sodium 2 gm in 100 mls @ 200 mls/hr 12/04/20 10:00 12/07/20 11:23 Rocephin/Ns 2 Gm/100 Ml IV 200 mls/hr Q12HR ABHAY Administration Protocol Acyclovir 800 mg/ Sodium 116 mls @ 100 mls/hr 12/04/20 10:00 12/07/20 12:21 Chloride IV 100 mls/hr Q8H ABHAY Administration Protocol Vancomycin HCl 1,750 mg/ 535 mls @ 333.333 mls/hr 12/06/20 11:00 12/06/20 23:35 Sodium Chloride IV 333.333 mls/hr Q12H ABHAY Administration Magnesium Hydroxide 30 ml 12/02/20 23:17 Magnesium Hydroxide (Mom) Oral Liqd Udc PO Q4H PRN Constipation Metoclopramide HCl 10 mg 12/02/20 23:17 Metoclopramide 10 Mg/2 Ml Inj IV Q6H PRN Nausea And Vomiting Naloxone HCl 0.1 mg 12/02/20 23:17 Naloxone 0.4 Mg/1 Ml Inj IV Q2MIN PRN Res Rate </= 8 or 02 SAT < 92% Ondansetron HCl 4 mg 12/02/20 23:17 Ondansetron 4 Mg/2 Ml Inj IV Q8H PRN Nausea And Vomiting Oxycodone/Acetaminophen 1 tab 12/02/20 23:17 Oxycodone /Acetaminophen 5-325mg Tab PO Q6H PRN Pain, Moderate (4-6) Senna 8.6 mg 12/02/20 23:17 Sennosides 8.6 Mg Tab PO Q12HR PRN Constipation Sodium Chloride 10 ml 12/02/20 23:45 12/07/20 11:24 Sodium Chloride 0.9% 10 Ml Flush Syringe IV 10 ml BID ABHAY Administration Sodium Chloride 10 ml 12/02/20 23:17 Sodium Chloride 0.9% 10 Ml Flush Syringe IV PRN PRN LINE FLUSH Tramadol HCl 50 mg 12/02/20 23:21 Tramadol 50 Mg Tab PO Q6H PRN Pain, Moderate (4-6) Trazodone HCl 50 mg 12/02/20 23:21 12/03/20 23:02 Trazodone 50 Mg Tab PO 50 mg QHS PRN Administration Insomnia
--- NOTE | 2020-12-07 15:51 | Fluoroscopy Report ---
FLUOROSCOPIC-GUIDED LUMBAR PUNCTURE INDICATION / CLINICAL INFORMATION: Poss Encephalitis, altered mental status. TECHNIQUE: The patient was consented prior to study, including full explanation of risks and benefits . Signed, informed consent was obtained. Time out procedure was performed. The patient was placed in the prone position on the fluoroscopic table then prepped and draped in the usual sterile fashion. Approximately 3 cc of lidocaine was used for local anesthetic Using fluorosco pic guidance, a 22-gauge spinal needle was advanced into the thecal sac at L3-L4. Approximately 14 mL of clear CSF fluid were obtained. There were no acute complications. Fluoroscopy Time: 0.1 minutes. Fluoroscopy images: 1. FINDINGS: Digital spot image demonstrates needle overlying the lumbar spine. IMPRESSION: 1. Fluoroscopically guided lumbar puncture with no acute complications. Signer Name: Jose Alejandro Miranda DO Signed: 12/07/2020 3:47 PM Workstation Name: [id number]
[2020-12-07 16:18] LABS: Glucose,CSF 61 mg/dL
[2020-12-07 16:48] LABS: Basophils CSF 0 %; Total Cells Counted 0 /mm3
[2020-12-07 16:49] LABS: Appearance,CSF Clear; Red Blood Cell,CSF 1 /mm3 (0-0); White Blood Cell,CSF 1 /mm3 (1-10)
[2020-12-07] MEDS: VANCOMYCIN 1,750 MG in SODIUM CHLORIDE 0.9% 500 ML 500 ML IV SCH ×2 (17:34→23:20)
[2020-12-08] MEDS: ACYCLOVIR 800 MG in SODIUM CHLORIDE 0.9% 100 ML IV SCH (01:51)
--- NOTE | 2020-12-08 07:32 | Progress Note ---
Assessment and Plan Assessment and plan: Mr. Toth is a 20-year-old [place] Citizen-speaking man with no significant past medical history who presented with altered mental status, leukocytosis, tachycardia. #Acute encephalopathy -Unclear etiology -CT head negative -Psych evaluation, no treatment recommended at this time -Infectious disease following, recs appreciated -LP performed today, awaiting CSF fluid studies -continue rocephin, acyclovir, and vancomycin per ID recs #Sinus tachycardia -Improving -EKG today shows sinus tachycardia -Continue telemetry #Leukocytosis -Improving -Blood cultures negative x4 days -We will continue to monitor Hospitalist Physical - Constitutional Vitals: Temp Pulse Resp BP Pulse Ox 98.3 F 92 H 18 101/63 99 12/08/20 03:40 12/08/20 03:40 12/08/20 03:40 12/08/20 03:42 12/08/20 03:40 General appearance: Present: no acute distress, well-nourished Results - Labs CBC & Chem 7: 12/07/20 04:41 12/07/20 04:41 Labs: Laboratory Last Values WBC 11.3 K/mm3 (4.5-11.0) H 12/07/20 04:41 RBC 5.47 M/mm3 (3.65-5.03) H 12/07/20 04:41 Hgb 15.9 gm/dl (11.8-15.2) H 12/07/20 04:41 Hct 47.3 % (35.5-45.6) H 12/07/20 04:41 MCV 87 fl (84-94) 12/07/20 04:41 MCH 29 pg (28-32) 12/07/20 04:41 MCHC 34 % (32-34) 12/07/20 04:41 RDW 13.4 % (13.2-15.2) 12/07/20 04:41 Plt Count 244 K/mm3 (140-440) 12/07/20 04:41 Lymph % (Auto) 23.4 % (13.4-35.0) 12/03/20 04:50 [place] % (Auto) 6.6 % (0.0-7.3) 12/03/20 04:50 Eos % (Auto) 1.4 % (0.0-4.3) 12/03/20 04:50 Baso % (Auto) 0.8 % (0.0-1.8) 12/03/20 04:50 Lymph # (Auto) 2.5 K/mm3 (1.2-5.4) 12/03/20 04:50 [place] # (Auto) 0.7 K/mm3 (0.0-0.8) 12/03/20 04:50 Eos # (Auto) 0.1 K/mm3 (0.0-0.4) 12/03/20 04:50 Baso # (Auto) 0.1 K/mm3 (0.0-0.1) 12/03/20 04:50 Seg Neutrophils % 67.8 % (40.0-70.0) 12/03/20 04:50 Seg Neutrophils # 7.1 K/mm3 (1.8-7.7) 12/03/20 04:50 PT 14.1 Sec. (12.2-14.9) 12/06/20 08:39 INR 1.04 (0.87-1.13) 12/06/20 08:39 APTT 27.5 Sec. (24.2-36.6) 12/06/20 08:39 Sodium 138 mmol/L (137-145) 12/07/20 04:41 Potassium 4.3 mmol/L (3.6-5.0) 12/07/20 04:41 Chloride 103.5 mmol/L (98-107) 12/07/20 04:41 Carbon Dioxide 27 mmol/L (22-30) 12/07/20 04:41 Anion Gap 12 mmol/L 12/07/20 04:41 BUN 11 mg/dL (9-20) 12/07/20 04:41 Creatinine 0.8 mg/dL (0.8-1.3) 12/07/20 04:41 Estimated GFR > 60 ml/min 12/07/20 04:41 BUN/Creatinine Ratio 14 % 12/07/20 04:41 Glucose 100 mg/dL (75-100) 12/07/20 04:41 Calcium 9.5 mg/dL (8.4-10.2) 12/07/20 04:41 Total Bilirubin 0.30 mg/dL (0.1-1.2) 12/03/20 04:50 AST 20 units/L (5-40) 12/03/20 04:50 ALT 22 units/L (7-56) 12/03/20 04:50 Alkaline Phosphatase 75 units/L (35-129) 12/03/20 04:50 Ammonia 39.0 umol/L (25-60) 12/02/20 19:23 Total Creatine Kinase 116 units/L (55-170) 12/02/20 19:23 C-Reactive Protein 0.50 mg/dL (0.00-1.30) 12/06/20 18:12 Total Protein 6.7 g/dL (6.3-8.2) 12/03/20 04:50 Albumin 4.1 g/dL (3.9-5) 12/03/20 04:50 Albumin/Globulin Ratio 1.6 % 12/03/20 04:50 Procalcitonin < 0.05 ng/mL (<0.15) 12/06/20 18:12 TSH 0.676 mlU/mL (0.270-4.200) 12/02/20 19:23 Urine Color Yellow (Yellow) 12/02/20 Unknown Urine Turbidity Cloudy (Clear) 12/02/20 Unknown Urine pH 8.0 (5.0-7.0) H 12/02/20 Unknown Ur Specific [place] 1.023 (1.003-1.030) 12/02/20 Unknown Urine Protein 100 mg/dl mg/dL (Negative) 12/02/20 Unknown Urine Glucose (UA) Neg mg/dL (Negative) 12/02/20 Unknown Urine Ketones Tr mg/dL (Negative) 12/02/20 Unknown Urine Blood Neg (Negative) 12/02/20 Unknown Urine Nitrite Neg (Negative) 12/02/20 Unknown Urine Bilirubin Neg (Negative) 12/02/20 Unknown Urine Urobilinogen < 2.0 mg/dL (<2.0) 12/02/20 Unknown Ur Leukocyte Esterase Neg (Negative) 12/02/20 Unknown Urine WBC (Auto) 2.0 /HPF (0.0-6.0) 12/02/20 Unknown Urine RBC (Auto) 1.0 /HPF (0.0-6.0) 12/02/20 Unknown Urine Bacteria (Auto) 1+ /HPF (Negative) 12/02/20 Unknown Urine Yeast (Budding) 2+ /HPF 12/02/20 Unknown CSF Appearance Clear 12/07/20 14:03 CSF Color Colorless 12/07/20 14:03 CSF WBC 1 /mm3 (1-10) 12/07/20 14:03 CSF RBC 1 /mm3 (0-0) 12/07/20 14:03 CSF Seg Neutrophils 0 % (0-6) 12/07/20 14:03 CSF Lymphocytes % 0 % (40-80) 12/07/20 14:03 CSF Reactive Lymphs 0 % 12/07/20 14:03 CSF Monocytes % 0 % (15-45) 12/07/20 14:03 CSF Eosinophils % 0 % 12/07/20 14:03 CSF Basophils 0 % 12/07/20 14:03 CSF Pathologist Review C 12/07/20 14:03 CSF Glucose 61 mg/dL 12/07/20 14:03 CSF Total Protein 32 mg/dL 12/07/20 14:03 Vancomycin Trough 6.9 ug/mL (5.0-20.0) 12/06/20 08:39 Urine Opiates Screen Negative 12/02/20 Unknown Urine Methadone Screen Negative 12/02/20 Unknown Ur Barbiturates Screen Negative 12/02/20 Unknown Ur Phencyclidine Scrn Negative 12/02/20 Unknown Ur Amphetamines Screen Negative 12/02/20 Unknown U Benzodiazepines Scrn Negative 12/02/20 Unknown Urine Cocaine Screen Negative 12/02/20 Unknown U Marijuana (THC) Screen Negative 12/02/20 Unknown Drugs of Abuse Note Disclamer 12/02/20 Unknown Plasma/Serum Alcohol < 0.01 % (0-0.07) 12/02/20 19:23 Microbiology: Microbiology 12/04/20 Unknown Cerebral Spinal Fluid CSF Culture - Preliminary 12/03/20 05:15 Peripheral/Venous Blood Culture - Preliminary NO GROWTH AFTER 4 DAYS 12/03/20 05:45 Peripheral/Venous Blood Culture - Preliminary NO GROWTH AFTER 4 DAYS Lam/IV: Voiding Method Toilet Active Medications - Current Medications Current Medications: Generic Name Dose Route Start Last Admin Trade Name Freq PRN Reason Stop Dose Admin Acetaminophen 650 mg 12/02/20 23:17 Acetaminophen 325 Mg Tab PO Q4H PRN Pain MILD(1-3)/Fever >100.5/STALEY Al Hydrox/Mg Hydrox/Simethicone 30 ml 09/09/21 23:17 Alum-Mag Hydroxide-Simethicone 310-610-36sg/5ml Oral Liqd 30 Ml PO Q4H PRN Indigestion Enoxaparin Sodium 40 mg 12/03/20 10:00 12/07/20 11:24 Enoxaparin 40 Mg/0.4 Ml Inj SUB-Q Not Given QDAY ABHAY Famotidine 20 mg 12/03/20 10:00 12/07/20 21:45 Famotidine 20 Mg/2 Ml Inj IV 20 mg BID ABHAY Administration Hydralazine HCl 5 mg 12/02/20 23:21 Hydralazine 20 Mg/1 Ml Inj IV Q4HR PRN Hypertension Sodium Chloride 1,000 mls @ 125 mls/hr 12/02/20 23:30 12/05/20 17:43 Nacl 0.9% 1000 Ml IV 125 mls/hr DIRECT ABHAY Administration Ceftriaxone Sodium 2 gm in 100 mls @ 200 mls/hr 12/04/20 10:00 12/07/20 21:44 Rocephin/Ns 2 Gm/100 Ml IV 200 mls/hr Q12HR ABHAY Administration Protocol Acyclovir 800 mg/ Sodium 116 mls @ 100 mls/hr 12/04/20 10:00 12/08/20 01:51 Chloride IV 100 mls/hr Q8H ABHAY Administration Protocol Vancomycin HCl 1,750 mg/ 535 mls @ 333.333 mls/hr 12/06/20 11:00 12/07/20 23:20 Sodium Chloride IV 333.333 mls/hr Q12H ABHAY Administration Magnesium Hydroxide 30 ml 12/02/20 23:17 Magnesium Hydroxide (Mom) Oral Liqd Udc PO Q4H PRN Constipation Metoclopramide HCl 10 mg 12/02/20 23:17 Metoclopramide 10 Mg/2 Ml Inj IV Q6H PRN Nausea And Vomiting Naloxone HCl 0.1 mg 12/02/20 23:17 Naloxone 0.4 Mg/1 Ml Inj IV Q2MIN PRN Res Rate </= 8 or 02 SAT < 92% Ondansetron HCl 4 mg 12/02/20 23:17 Ondansetron 4 Mg/2 Ml Inj IV Q8H PRN Nausea And Vomiting Oxycodone/Acetaminophen 1 tab 12/02/20 23:17 Oxycodone /Acetaminophen 5-325mg Tab PO Q6H PRN Pain, Moderate (4-6) Senna 8.6 mg 12/02/20 23:17 Sennosides 8.6 Mg Tab PO Q12HR PRN Constipation Sodium Chloride 10 ml 12/02/20 23:45 12/07/20 21:45 Sodium Chloride 0.9% 10 Ml Flush Syringe IV 10 ml BID ABHAY Administration Sodium Chloride 10 ml 12/02/20 23:17 Sodium Chloride 0.9% 10 Ml Flush Syringe IV PRN PRN LINE FLUSH Tramadol HCl 50 mg 12/02/20 23:21 Tramadol 50 Mg Tab PO Q6H PRN Pain, Moderate (4-6) Trazodone HCl 50 mg 12/02/20 23:21 12/03/20 23:02 Trazodone 50 Mg Tab PO 50 mg QHS PRN Administration Insomnia
[2020-12-08 08:30] LABS: Hematocrit 46.6 % (35.5-45.6); Hemoglobin 15.6 gm/dl (11.8-15.2); Mean Corpuscular HGB Conc 34 % (32-34); Mean Corpuscular Volume 86 fl (84-94); Platelet Count 245 K/mm3 (140-440); Red Blood Count 5.39 M/mm3 (3.65-5.03); Red Cell Distribution Width 13.5 % (13.2-15.2)
[2020-12-08 08:36] LABS: BUN/Creatinine Ratio 11; Blood Urea Nitrogen 11 mg/dL (9-20); Calcium 9.5 mg/dL (8.4-10.2); Hemolysis Index 9
[2020-12-08] MEDS: FAMOTIDINE 20 MG/2 ML INJ IV SCH (09:20)
[2020-12-08] MEDS: ENOXAPARIN 40 MG/0.4 ML INJ SUB-Q SCH (09:20)
--- NOTE | 2020-12-08 11:58 | Progress Note ---
Assessment and Plan Cultures: 12/03/2020 blood culture no growth today CSF no growth today Assessment: 20-year-old male with no medical history admitted on 12/03/2020 secondary to altered mental status for few hours: #SIRS: Of unclear etiology. Presented with tachycardia and leukocytosis. Currently resolved. Urinalysis negative. Chest x-ray negative. Blood cultures negative. CRP normal, procalcitonin normal. #Acute encephalopathy: Resolved. Of unclear etiology. No recent fever, headaches, head trauma. Patient has recovered, talking however flat affect, poor eye contact. No fever documented in patient. Again he denies any headaches currently. The possibility of infectious encephalitis/meningitis very unlikely. MRI unremarkable. CT of the head negative. Chest x-ray negative. Urine drug screen negative. Status post lumbar puncture, CSF not consistent with meningitis. Recommendations: -Stop all antibiotics -Continue neurology evaluation as an outpatient -Psych evaluation noted Okay to discharge from ID standpoint we will sign off Kay Crawley MD Infectious Diseases Program Development Manager [facility] ([facility]) M [phone] O [phone] Subjective Date of service: 12/08/20 Principal diagnosis: Altered mental status Interval history: Patient feels okay. Denies any headache, fever, chills, altered mental status. He reports he is ready to go home. Objective - Exam Narrative Exam: General appearance: Alert in NAD flat affect Eyes: anicteric sclerae, moist conjunctivae; no lid-lag; PERRLA HENT: Normocephalic, Atraumatic; normal external ears, nares open, oropharynx clear with moist mucous membranes and no oral thrush; normal hard and soft palate. Neck: supple, tracheal midline, no JVD Lungs: CTA, with normal respiratory effort and no intercostal retractions CV: RRR no murmur Abdomen: Soft, non-tender; no masses or hepatosplenomegaly Extremities: no edema, no cyanosis Skin: left arm blistering Psych: no agitated flat affect Neuro: alert and oriented x 3. Moving all extermities - Constitutional Vitals: Vital Signs Temp Pulse Resp BP Pulse Ox 97.5 F L 77 18 91/50 99 12/08/20 08:15 12/08/20 08:15 12/08/20 08:15 12/08/20 08:15 12/08/20 08:15 Temperature -Last 24 Hours Temperature 97.5 F Temperature 98.3 F Temperature 98.1 F Temperature 98.1 F Temperature 97.8 F Temperature 98.8 F - Labs CBC & Chem 7: 12/08/20 07:52 12/08/20 07:52 Labs: Abnormal lab results 12/08/20 12/08/20 Range/Units 07:52 07:52 RBC 5.39 H (3.65-5.03) M/mm3 Hgb 15.6 H (11.8-15.2) gm/dl Hct 46.6 H (35.5-45.6) % Glucose 102 H (75-100) mg/dL
[2020-12-08] MEDS: SODIUM CHLORIDE 0.9% 1000 ML 1,000 ML IV SCH (12:46)
--- NOTE | 2020-12-08 14:09 | Discharge Summary ---
Providers - Providers Date of Admission: 12/03/20 15:19 Date of discharge: 12/08/20 Attending physician: KOKO JUNIOR MD 12/03/20 10:19 Consult to Physician [CONS] Routine Comment: Consulting Provider: FEDERICO ZAMBRANO Physician Instructions: Reason For Exam: Altered mental status 12/04/20 08:35 Consult to Physician [CONS] Routine Comment: Consulting Provider: GIOVANI MARROQUIN Physician Instructions: Reason For Exam: Possible encephalitis Primary care physician: [employer] Hospitalization Condition: Stable Procedures: Lumbar Puncture 12/07 Hospital course: Patient presented on 12/03 with altered mental status, tachycardia and leukocytosis. MRI brain was negative. UDS was also negative. He was started on empiric antibiotics. Neurology, psychiatry and infectious disease were consulted. There was a concern for encephalitis versus meningitis. EEG was unremarkable. LP was performed on 12/07. CSF studies showed no growth to date at the time of this note. Antibiotics were discontinued. Patient was discharged on 12/08 and advised to follow-up with neurology outpatient. Disposition: 01 HOME / SELF CARE / HOMELESS Final Discharge Diagnosis (Prints w/discharge instructions): Acute encephalopathy Time spent for discharge: 40 minutes Core Measure Documentation - Palliative Care Palliative Care/ Comfort Measures: Not Applicable - Core Measures Any of the following diagnoses?: none - VTE Discharge Requirements Deep Vein Thrombosis/Pulmonary Embolism Present on Admission: No - Acute AR Discharge Requirements Aspirin at discharge: No Reason for no aspirin on DC: Medical contraindication (Not required) DIANA/ARB for LVSD if EF <40%: Not Applicable Beta debi at discharge: No Reason for no beta debi on DC: Medical contraindication (Not needed) Statin for LDL = or >100 mg/dl on DC: Not Applicable - Heart Failure Discharge Requirements DIANA/ARB for LVSD if EF <40%: Not Applicable - Stroke Discharge Requirements Statin for LDL = or >70 mg/dl on DC: Not Applicable Reason for no statin on DC: Not Indicated Anticoag for atrial fib/atrial flutter: Not Applicable Reason for no anticoag for AF/F on DC: Not Indicated Antithrombotic for ischemic stroke: No Reason for no antithrombotic on DC: Not Indicated Exam - Physical Exam Narrative exam: GENERAL: Well-developed well-nourished. Lying in bed. HEENT: Normocephalic. Atraumatic. NECK: Supple. CHEST/LUNGS: CTAB on room air HEART/CARDIOVASCULAR: RRR. No murmur, rubs or gallops appreciated. ABDOMEN: +BS. NT/ND. SKIN: No rashes noted. NEURO: No focal motor deficit. Follows all commands. EXTREMITIES: No cyanosis, cubbing or edema. PSYCH: Cooperative. - Constitutional Vitals: Temp Pulse Resp BP Pulse Ox 97.5 F L 77 18 91/50 99 12/08/20 08:15 12/08/20 08:15 12/08/20 10:00 12/08/20 08:15 12/08/20 10:00 Plan Activity: advance as tolerated Diet: regular Assessment: Stable. CSF culture negative x 24hrs. All antibiotics discontinued. Will need to follow up with Neurology outpatient. Follow up with: NEUROLOGY SANTOS [facility] [Provider Group] - 7 Days PRIMARY CAREMD [Primary Care Provider] - 7 Days
[2020-12-08 20:13] VITALS: BP 110/71
== END 2020-12-08 19:07 | disposition home or self-care (01) | DRG 91 ==
LOC: ED 18:50 → 4A 22:22 → OBSVTOIN 12-03 15:19 → 4A 12-03 20:00
PROVIDERS: ADMIT Hospitalist; ATTEND Student in an Organized Health Care Education/Training Program
PROC: 009U3ZX Drainage of Spinal Canal, Percutaneous Approach, Diagnostic (ICD-10-PCS; principal; 2020-12-07)
PROC: B01B1ZZ Fluoroscopy of Spinal Cord using Low Osmolar Contrast (ICD-10-PCS; 2020-12-07)
DX: G92 Toxic encephalopathy (principal); G04.90 Encephalitis and encephalomyelitis, unspecified; G04.00 Acute disseminated encephalitis and encephalomyelitis, unspecified; R65.10 Systemic inflammatory response syndrome (SIRS) of non-infectious origin without acute organ dysfunction; R56.9 Unspecified convulsions
CPT/HCPCS: 36415; 62270; 62328; 70450; 70551; 70552; 71045; 80048; 80053; 80202; 80307; 80320; 81001; 82140; 82550; 82947; 84145; 84160; 84443; 85025; 85027; 85610; 85730; 86140; 86592; 87040; 87116; 87498; 87799; 89051; 93005; G0378; A9575; G0480; J0133; J0696; J1650; J2060; J3370; J7030; J7040; J7050